=== PATIENT | female | born 1995 | race Caucasian/White ===

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

== ENCOUNTER 2017-07-04 13:50 | Emergency (ER) | payer MEDICAID ==
[~2017-07-04] VITALS: Ht 160 cm; Wt 72.6 kg
[~2017-07-04 13:50] MED LIST changes: +CLIN300C11 PO; +IBUP-1780 PO; +METR500T PO; +NAPR500T PO
--- OUTSIDE RECORDS SUMMARY | 2017-07-04 13:55 | XMS REPORT | Clinical Summary ---
Demographics Preferred Language Unknown Marital Status Unknown Shinto Affiliation Unknown Race Unknown Ethnic Group Unknown Author Author [facility] Address Unknown Phone Unavailable Support Name Relationship Address Phone , Contact,No ECON Unknown Allergies Not on File Current Medications Not on file Active Problems Not on file Social History Tobacco Use Types Packs/Day Years Used Date Never Assessed Sex Assigned at Date Recorded Not on file Plan of Treatment Health Maintenance Due Date Last Done Comments HPV Vaccines (1 of 3 - 2008 Female 3 Dose Series) Varicella Vaccines (1 of 2010 2 - 2 Dose Adolescent Series) MenB Vaccine (Bexsero) (1 2013 of 2) DTaP,Tdap,and Td Vaccines 2016 (1 - Tdap) Influenza Vaccine (#1) 2017 Results Not on filefrom Last 3 Months
--- OUTSIDE RECORDS SUMMARY | 2017-07-04 13:55 | XMS REPORT ---
Author Author Indy Herrmann [facility] eClinicalWorks Address Unknown Phone Unavailable Care Team Providers Care Denture Contour Wire Specialist Name Role Phone Indy Herrmann Unavailable Allergies No Known Allergies Problems Problem Type Condition ICD-9 Code Onset Dates Condition Status Assessment Unspecified viral infection, in conditions classified elsewhere and of unspecified site 079.99 Active Assessment Other constipation 564.09 Active Problem Allergic rhinitis 477.9 Active Medications Medication Code System Code Instructions Start Date End Date Status Dosage Dulcolax [facility] [address] 5 MG Orally x1, repeat in 6 hrs if no results May 23, 2014 Jun 22, 2014 Active 1 tablet as needed Ankle Lace-Up Brace [facility] 5349 1 to left ankle when doing activities Apr Active as directed Colace [facility] [address]-94 100 MG Orally BID May 23, 2014 Jul 21, 2014 Active 1 capsule as needed Procedures Procedure Coding System Code Date OFFICE VISIT, EST-LOW COMPLEXITY (15 MIN.) CPT-4 77463 Jun 20, 2014 Results No Known Results Summary Purpose eClinicalWorks Submission
[2017-07-04 13:56] VITALS: BP 114/80
--- OUTSIDE RECORDS SUMMARY | 2017-07-04 13:56 | XMS REPORT ---
Author Author Indy Herrmann [facility] eClinicalWorks Address Unknown Phone Unavailable Care Team Providers Care Top Closer Name Role Phone Indy Herrmann Unavailable Allergies No Known Allergies Problems Problem Type Condition ICD-9 Code Onset Dates Condition Status Assessment Other acne 706.1 Active Problem Allergic rhinitis 477.9 Active Medications Medication Code System Code Instructions Start Date End Date Status Dosage Colace [facility] [address]-36 100 MG Orally Once a day for 7 days then prn May 23, 2014 Jun 22, 2014 Active 1 capsule as needed Dulcolax [facility] [address] 5 MG Orally x1, repeat in 6 hrs if no results May 23, 2014 Jun 22, 2014 Active 1 tablet as needed Ankle Lace-Up Brace [facility] 5349 1 to left ankle when doing activities Apr Active as directed Procedures Procedure Coding System Code Date OFFICE VISIT, EST-LOW COMPLEXITY (10 MIN.) CPT-4 02795 Jun 06, 2014 Results No Known Results Summary Purpose eClinicalWorks Submission
--- OUTSIDE RECORDS SUMMARY | 2017-07-04 13:56 | XMS REPORT ---
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
--- OUTSIDE RECORDS SUMMARY | 2017-07-04 13:56 | XMS REPORT ---
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
[2017-07-04] MEDS ORDERED: CHLO473M4 MM (14:05)
[2017-07-04] MEDS ORDERED: LIDOCAINE VISCOUS BC (14:05)
[2017-07-04] MEDS ORDERED: NAPR500T PO (14:05)
--- NOTE | 2017-07-04 14:05 | ED EENT ---
History of Present Illness General Stated Complaint: DENTAL PAIN/PRESSURE Source: patient Exam Limitations: no limitations History of Present Illness Time seen by provider: 14:00 Initial Comments To ER with dental pain ongoing. This affects all of her teeth she states as a pressure sensation. She was here June 11 for this and given clindamycin and naproxen but she denies improvement. She has an appointment August [address] Melgar the dentist. Location: dental Associated Symptoms: denies symptoms Allergies and Home Medications Allergies Coded Allergies: Penicillins (Unverified Allergy, Mild, 10/30/08) Home Medications Clindamycin HCl 300 Mg Capsule, 300 MG PO TID, #21 Prescribed by: LORE GARCIA on 06/11/17 1528 Docusate Sodium 100 Mg Capsule, 100 MG PO BID PRN for CONSTIPATION, #40 Prescribed by: DARREL HOROWITZ on 05/29/16 0943 Erythromycin Base 1 Gm Oint...g., 0 OP Q4H, #1 1/2 inch Prescribed by: PEDRO ALONZO on 08/18/16 1008 Ferrous Sulfate 325 Mg Tablet, 325 MG PO DAILY@0700, #30 Prescribed by: DARREL HOROWITZ on 05/29/16 0943 Ibuprofen 600 Mg Tablet, 600 MG PO Q6H PRN for PAIN, #80 Prescribed by: DARREL HOROWITZ on 05/29/16 0943 Ibuprofen 800 Mg Tablet, 800 MG PO Q8H PRN for PAIN, #30 Prescribed by: LORE GARCIA on 10/17/16 1231 Metronidazole 500 Mg Tablet, 500 MG PO BID, #14 Prescribed by: LORE GARCIA on 10/17/16 1231 Naproxen 500 Mg Tablet, 500 MG PO BID PRN for PAIN-MODERATE, #30 Prescribed by: LORE GARCIA on 06/11/17 1528 Olopatadine 5 Ml Drops, 1 DROP OU BID PRN for ITCHING, #1 May substitute Pataday one drop each eye daily if more cost effective Prescribed by: PEDRO ALONZO on 08/18/16 1008 Pnv with Ca,No.72/Iron/FA 1 Each Tablet, 1 EA PO DAILY@0700, #30 Prescribed by: DARREL HOROWITZ on 05/29/16 0943 Sulfamethoxazole/Trimethoprim 1 Each Tablet, 1 EACH PO BID, #10 Prescribed by: LORE GARCIA on 07/15/16 1801 Sulfamethoxazole/Trimethoprim 1 Each Tablet, 1 EACH PO BID, #10 Prescribed by: LORE GARCIA on 10/17/16 1231 Review of Systems Constitutional: see HPI Eyes: No Symptoms Reported Ears: No Symptoms Reported Nose: no symptoms reported Mouth: see HPI, pain Throat: no symptoms reported Respiratory: no symptoms reported Cardiovascular: no symptoms reported Past Molaebd-Pyiejs-Tnsevk Hx Patient Social History Type Used: Cigarettes 2nd Hand Smoke Exposure: Yes Recent Foreign Travel: No Contact w/Someone Who Travel: No Recent Hopitalizations: No Immunizations Up To Date Tetanus Booster (TDap): Unknown PED Vaccines UTD: Yes Date of Influenza Vaccine: Jun 24, 2016 Seasonal Allergies Seasonal Allergies: Yes Surgeries History of Surgeries: Yes (TUBES IN EARS) Respiratory History of Respiratory Disorde: Yes Respiratory Disorders: Asthma, Pneumonia Cardiovascular History of Cardiac Disorders: No Neurological History of Neurological Disord: No Reproductive System Hx Reproductive Disorders: No Sexually Transmitted Disease: No HIV/AIDS: No Female Reproductive Disorders: Denies Gastrointestinal History of Gastrointestinal Di: No Musculoskeletal History of Musculoskeletal Dis: No Endocrine History of Endocrine Disorders: No Cancer History of Cancer: No Psychosocial History of Psychiatric Problem: No Integumentary History of Skin or Integumenta: No Blood Transfusions History of Blood Disorders: No Adverse Reaction to a Blood Tr: No Family Medical History Family Medial History: Patient reports no known family medical history. Physical Exam General Appearance: WD/WN, no apparent distress Eyes: bilateral eye normal inspection, bilateral eye PERRL, bilateral eye EOMI Ears: bilateral ear auricle normal, bilateral ear canal normal, bilateral ear TM normal Mouth/Throat: normal mouth inspection, pharynx normal, other (gingivitis noted but there is no fluctuant dental abscess.) Gastrointestinal: non tender, soft Neurologic/Psychiatric: alert, normal mood/affect, oriented x 3 Skin: normal color, warm/dry Departure Impression Impression: Primary Impression: Pain, dental Additional Impression: Gingivitis Disposition: 01 HOME, SELF-CARE Condition: Stable Departure-Patient Inst. Decision time for Depature: 14:02 [facility]errals: [facility] (PCP/Family) Primary Care Physician Patient Instructions: Dental Pain, Gingivitis (DC) Add. Discharge Instructions: 1. Follow-up with your dentist 2. Scripts [Lidocaine Viscous] No Conflict Check 1 ML BC TID Y for PAIN-MODERATE TO SEVERE, #1 EACH Prov: LORE GARCIA APRN 07/04/17 Chlorhexidine Gluconate (Peridex) 473 Ml Mouthwash 30 ML MM BID, #473 ML Prov: LORE GARCIA APRN 07/04/17 Naproxen (Naprosyn) 500 Mg Tablet 500 MG PO BID, #30 TAB Prov: LORE GARCIA APRN 07/04/17 LORE GARCIA APRN Jul 04, 2017 14:05
== END 2017-07-04 14:10 | disposition home or self-care (01) ==
LOC: EDUNIT# 13:50 → ER 13:51
DX: K05.10 Chronic gingivitis, plaque induced (principal); J45.909 Unspecified asthma, uncomplicated; Z87.01 Personal history of pneumonia (recurrent); Z77.22 Contact with and (suspected) exposure to environmental tobacco smoke (acute) (chronic)
CPT/HCPCS: 99282

== ENCOUNTER 2017-07-13 18:28 | Emergency (ER) | payer MEDICAID ==
[~2017-07-13] VITALS: Ht 160 cm; Wt 72.6 kg
[~2017-07-13 18:28] MED LIST changes: +CHLO473M4 MM; +LIDOCAINE VISCOUS BC; +NAPR-1071 PO; -NAPR500T PO
[2017-07-13] MEDS ORDERED: LACTATED RINGERS 1,000 ML IV ONE (18:44)
[2017-07-13] MEDS ORDERED: ONDANSETRON 4 MG/2 ML (SDV) Z0FRAN IVP ONE (18:45)
--- NOTE | 2017-07-13 18:49 | ED GI ---
General Chief Complaint: Abdominal/GI Problems Stated Complaint: VOMITING Source of Information: Patient History of Present Illness Time Seen By Provider: 18:39 Initial Comments C/O NAUSEA/VOMITING/DIARRHEA SINCE 0300 THIS AM HAS VOMITED X 7-8, AND HAD DIARRHEA X 7-8 C/O RIGHT MID / LOWER ABDOMINAL PAIN HAS HAD SOME BURNING ON URINATION AND URINARY FREQUENCY NO FEVER CHILD AND AND PT'S FATHER BOTH ILL WITH SAME--ALL LIVE IN SAME HOME NO SUSPICIOUS FOODS LMP 06/18/17. NORMAL. NO CONTROL PCP: [facility] Allergies and Home Medications Allergies Coded Allergies: Penicillins (Unverified Allergy, Mild, 10/30/08) Home Medications Chlorhexidine Gluconate 473 Ml Mouthwash, 30 ML MM BID, #473 Prescribed by: LORE GARCIA on 07/04/17 1405 Clindamycin HCl 300 Mg Capsule, 300 MG PO TID, #21 Prescribed by: LORE GARCIA on 06/11/17 1528 Review of Systems Constitutional: no symptoms reported EENTM: No Symptoms Reported Respiratory: No Symptoms Reported Cardiovascular: No Symptoms Reported Gastrointestinal: See HPI, Abdominal Pain, Diarrhea, Nausea, Poor Appetite, Poor Fluid Intake, Vomiting Genitourinary: See HPI, Burning, Frequency Musculoskeletal: no symptoms reported Skin: no symptoms reported Psychiatric/Neurological: No Symptoms Reported Endocrine: No Symptoms Reported Hematologic/Lymphatic: No Symptoms Reported Past Bhoiavh-Vajqmh-Jtlruj Hx Patient Social History Alcohol Use: Denies Use Recreational Drug Use: No Smoking Status: Current Everyday Smoker (1/2 PPD) Type Used: Cigarettes 2nd Hand Smoke Exposure: Yes Recent Hopitalizations: No Immunizations Up To Date Tetanus Booster (TDap): Unknown PED Vaccines UTD: Yes Date of Influenza Vaccine: Jun 24, 2016 Seasonal Allergies Seasonal Allergies: Yes Surgeries History of Surgeries: Yes (BMT'S ) Surgeries: Ear Surgery Respiratory History of Respiratory Disorde: Yes Respiratory Disorders: Asthma, Pneumonia Cardiovascular History of Cardiac Disorders: No Neurological History of Neurological Disord: No Reproductive System : No Hx Reproductive Disorders: No Sexually Transmitted Disease: No HIV/AIDS: No Female Reproductive Disorders: Denies Genitourinary History of Genitourinary Disor: No Gastrointestinal History of Gastrointestinal Di: No Musculoskeletal History of Musculoskeletal Dis: No Endocrine History of Endocrine Disorders: No HEENT History of HEENT Disorders: Yes (BMT'S INFANT) HEENT Disorders: Chronic Ear Infection Cancer History of Cancer: No Psychosocial History of Psychiatric Problem: No Integumentary History of Skin or Integumenta: No Blood Transfusions History of Blood Disorders: No Adverse Reaction to a Blood Tr: No Family Medical History Family Medial History: Patient reports no known family medical history. Physical Exam Vital Signs VS - Last 72 Hours, by Label 07/13/17 18:39 Temp 98.9 Pulse 86 Resp 18 B/P (MAP) 116/78 Pulse Ox 99 Capillary Refill : General Appearance: WD/WN, no apparent distress, other (DOES NOT APPEAR ILL. SMILING, TALKATIVE, WALKS UPRIGHT AND QUICKLY WITHOUT DIFFICULTY) HEENT: PERRL/EOMI, normal ENT inspection, other (ORAL MUCOSA MOIST) Neck: normal inspection Respiratory: normal breath sounds, no respiratory distress, no accessory muscle use Cardiovascular: regular rate, rhythm, no edema, no JVD, no murmur Gastrointestinal: normal bowel sounds, soft, no organomegaly, No distended, No guarding, No rebound, tenderness (MILD RIGHT MID AND LOWER ABDOMINAL TENDERNESS) , No hernia, No mass Extremities: normal range of motion, non-tender, normal inspection, no pedal edema, no calf tenderness, normal capillary refill Back: normal inspection, no CVA tenderness Neurologic/Psychiatric: 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 nml as tested, no motor/sensory deficits, alert, normal mood/affect, oriented x 3 Skin: normal color, warm/dry, No rash Progress/Results/Core Measures Results/Orders Lab Results Laboratory Tests Test 07/13/17 18:50 07/13/17 19:19 Range/Units White Blood Count 5.9 4.3-11.0 10^3/uL Red Blood Count 4.63 4.35-5.85 10^6/uL Hemoglobin 13.5 11.5-16.0 G/DL Hematocrit 40 35-52 % Mean Corpuscular Volume 86 80-99 FL Mean Corpuscular Hemoglobin 29 25-34 PG Mean Corpuscular Hemoglobin Concent 34 32-36 G/DL Red Cell Distribution Width 13.6 10.0-14.5 % Platelet Count 255 130-400 10^3/uL Mean Platelet Volume 9.2 7.4-10.4 FL Neutrophils (%) (Auto) 75 42-75 % Lymphocytes (%) (Auto) 13 12-44 % Monocytes (%) (Auto) 10 0-12 % Eosinophils (%) (Auto) 1 0-10 % Basophils (%) (Auto) 0 0-10 % Neutrophils # (Auto) 4.5 1.8-7.8 X 10^3 Lymphocytes # (Auto) 0.8 L 1.0-4.0 X 10^3 Monocytes # (Auto) 0.6 0.0-1.0 X 10^3 Eosinophils # (Auto) 0.1 0.0-0.3 10^3/uL Basophils # (Auto) 0.0 0.0-0.1 10^3/uL Sodium Level 140 135-145 MMOL/L Potassium Level 3.8 3.6-5.0 MMOL/L Chloride Level 105 98-107 MMOL/L Carbon Dioxide Level 23 21-32 MMOL/L Anion Gap 12 5-14 MMOL/L Blood Urea Nitrogen 7 7-18 MG/DL Creatinine 0.63 0.60-1.30 MG/DL Estimat Glomerular Filtration Rate > 60 BUN/Creatinine Ratio 11 Glucose Level 90 70-105 MG/DL Calcium Level 9.1 8.5-10.1 MG/DL Total Bilirubin 0.3 0.1-1.0 MG/DL Aspartate Amino Transf (AST/SGOT) 12 5-34 U/L Alanine Aminotransferase (ALT/SGPT) 16 0-55 U/L Alkaline Phosphatase 54 40-136 U/L Total Protein 6.6 6.4-8.2 GM/DL Albumin 4.0 3.2-4.5 GM/DL Amylase Level 30 25-125 U/L Lipase 9 8-78 U/L Serum Test, Qualitative NEGATIVE NEGATIVE Urine Color YELLOW Urine Clarity CLEAR Urine pH 7 5-9 Urine Specific [place] 1.005 L 1.016-1.022 Urine Protein NEGATIVE NEGATIVE Urine Glucose (UA) NEGATIVE NEGATIVE Urine Ketones NEGATIVE NEGATIVE Urine Nitrite NEGATIVE NEGATIVE Urine Bilirubin NEGATIVE NEGATIVE Urine Urobilinogen NORMAL NORMAL MG/DL Urine Leukocyte Esterase 1+ H NEGATIVE Urine RBC (Auto) NEGATIVE NEGATIVE Urine RBC NONE /HPF Urine WBC 0-2 /HPF Urine Squamous Epithelial Cells 0-2 /HPF Urine Crystals NONE /LPF Urine Bacteria NONE /HPF Urine Casts NONE /LPF Urine Mucus NEGATIVE /LPF Urine Culture Indicated NO My Orders Orders - SHANON BELLO DO Saline Lock/Iv-Start (07/13/17 18:44) Amylase (07/13/17 18:44) Cbc With Automated Diff (07/13/17 18:44) Comprehensive Metabolic Panel (07/13/17 18:44) Hcg,Qualitative Serum (07/13/17 18:44) Lipase (07/13/17 18:44) Ua Culture If Indicated (07/13/17 18:44) Ondansetron Injection (Zofran Injectio (07/13/17 18:45) Saline Lock/Iv-Start (07/13/17 18:44) Lactated Ringers (Lr 1000 Ml Iv Solution (07/13/17 18:44) Medications Given in ED Current Medications Medications Dose Ordered Sig/Charity Route Start Time Stop Time Status Last Admin Dose Admin Lactated Ringer's 1,000 ml @ 0 mls/hr Q0M ONCE IV 07/13/17 18:44 07/13/17 18:45 DC 07/13/17 18:52 1,000 MLS/HR Ondansetron HCl 4 mg ONCE ONCE IVP 07/13/17 18:45 07/13/17 18:46 DC 07/13/17 18:52 4 MG Vital Signs/I&O Vital Sign - Last 12Hours 07/13/17 18:39 Temp 98.9 Pulse 86 Resp 18 B/P (MAP) 116/78 Pulse Ox 99 Progress Note : Progress Note NO VOMITING OR DIARRHEA DURING ER STAY ABLE TO VOID X 2 DURING ER STAY NAUSEA RESOLVED WITH MEDICATIONS AND STATES SHE FEELS MUCH BETTER Departure Impression Impression: Primary Impression: Gastroenteritis Disposition: 01 HOME, SELF-CARE Condition: Improved Departure-Patient Inst. Referrals: [facility] (PCP/Family) Primary Care Physician Patient Instructions: [id number], Viral Gastroenteritis, Adult ( DC) Add. Discharge Instructions: CLEAR LIQUIDS--WATER, BROTH, JELLO, GATORADE TOMORROW IF YOU ARE BETTER, ADD BRATS DIET TO CLEAR LIQUIDS--BANANAS, RICE, APPLESAUCE, TOAST, SALTINES [facility]-2 DAYS IF NO BETTER All discharge instructions reviewed with patient and/or family. Voiced understanding. Scripts Ondansetron (Zofran Odt) 4 Mg Tab.rapdis 4 MG PO Q4H for Nausea/Vomiting, #10 TAB Prov: SHANON BELLO DO 07/13/17 SHANON BELLO DO Jul 13, 2017 18:49
[2017-07-13 19:11] LABS: BASOPHILS % (AUTO) 0 % (0-10); EOSINOPHILS # (AUTO) 0.1 10^3/uL (0.0-0.3); EOSINOPHILS % (AUTO) 1 % (0-10); LYMPHOCYTES # (AUTO) 0.8 X 10^3 (1.0-4.0); LYMPHOCYTES % (AUTO) 13 % (12-44); MEAN CORPUSCULAR HEMOGLOBIN 29 PG (25-34); MEAN CORPUSCULAR HGB CONC 34 G/DL (32-36); MEAN CORPUSCULAR VOLUME 86 FL (80-99); MEAN PLATELET VOLUME 9.2 FL (7.4-10.4); MONOCYTES # (AUTO) 0.6 X 10^3 (0.0-1.0); MONOCYTES % (AUTO) 10 % (0-12); NEUTROPHILS # (AUTO) 4.5 X 10^3 (1.8-7.8); NEUTROPHILS % (AUTO) 75 % (42-75); PLATELET COUNT 255 10^3/uL (130-400); RED BLOOD COUNT 4.63 10^6/uL (4.35-5.85); RED CELL DISTRIBUTION WIDTH 13.6 % (10.0-14.5); WHITE BLOOD COUNT 5.9 10^3/uL (4.3-11.0)
[2017-07-13 19:27] LABS: BILIRUBIN,URINE NEGATIVE (NEGATIVE); KETONES,URINE NEGATIVE (NEGATIVE); LEUKOCYTE ESTERASE ,URINE 1+ (NEGATIVE); NITRITE,URINE NEGATIVE (NEGATIVE); PH,URINE 7 (5-9); PROTEIN,URINE NEGATIVE (NEGATIVE); UROBILINOGEN,URINE NORMAL (NORMAL)
[2017-07-13 19:29] LABS: ALANINE AMINOTRANSFERASE 16 U/L (0-55); AMYLASE 30 U/L (25-125); ANION GAP 12 MMOL/L (5-14); ASPARTATE AMINO TRANSFERASE 12 U/L (5-34); BILIRUBIN,TOTAL 0.3 MG/DL (0.1-1.0); BLOOD UREA NITROGEN 7 MG/DL (7-18); BUN/CREATININE RATIO 11; CALCIUM 9.1 MG/DL (8.5-10.1); CARBON DIOXIDE 23 MMOL/L (21-32); CHLORIDE 105 MMOL/L (98-107); CREATININE SERUM 0.63 MG/DL (0.60-1.30); GFR ESTIMATED > 60; GLUCOSE 90 MG/DL (70-105); LIPASE 9 U/L (8-78); POTASSIUM 3.8 MMOL/L (3.6-5.0); SODIUM 140 MMOL/L (135-145); TOTAL PROTEIN 6.6 GM/DL (6.4-8.2)
[2017-07-13 19:47] LABS: SQUAMOUS EPITHELIAL CELL,UR 0-2 /HPF; WBC,URINE 0-2 /HPF
[2017-07-13] MEDS ORDERED: ONDA4TAB8 PO (20:03)
[2017-07-13] MEDS ORDERED: RX-ONDANSETRON 4 MG ODT (ZOFRAN) PPK #4 ONE (20:11)
== END 2017-07-13 20:15 | disposition home or self-care (01) ==
LOC: EDUNIT# 18:28 → ER 18:29
DX: K52.9 Noninfective gastroenteritis and colitis, unspecified (principal); J45.909 Unspecified asthma, uncomplicated; F17.210 Nicotine dependence, cigarettes, uncomplicated; Z87.01 Personal history of pneumonia (recurrent)
CPT/HCPCS: 36415; 80053; 81000; 82150; 83690; 84703; 85025

== ENCOUNTER 2017-10-05 10:47 | Emergency (ER) | payer MEDICAID ==
[~2017-10-05] VITALS: Ht 160 cm; Wt 72.6 kg
[~2017-10-05 10:47] MED LIST changes: -FERR-74 PO; +FERR325T18 PO; +ONDA4TAB8 PO
--- OUTSIDE RECORDS SUMMARY | 2017-10-05 10:52 | XMS REPORT | Clinical Summary ---
Demographics Preferred Language Unknown Marital Status Unknown Pentecostal Affiliation Unknown Race Unknown Ethnic Group Unknown Author Author [facility] Address Unknown Phone Unavailable Care Team Providers Care Operator Ground Based [employer] Name Role Phone PP Unavailable Allergies Not on File Current Medications Not [...]
--- OUTSIDE RECORDS SUMMARY | 2017-10-05 10:55 | XMS REPORT | Continuity of Care Document ---
Author Author [facility] Organization [facility] Address Unknown Phone Unavailable Allergies Active Description Code Type Severity Reaction Onset Reported/Identified Relationship to Patient Clinical Status Yes Penicillins Drug Allergy N/A N/A 10/29/2008 Yes Penicillins [id number] Drug Allergy Mild N/A 10/30/2008 Medications There is no data. Problems Date Dx Coded Attending Type Code Diagnosis Diagnosed By 10/29/2008 HEMAL BUCHANAN MD 466.19 Bronchiolitis 10/29/2008 HEMAL BUCHANAN MD 733.6 Costochondritis (tietze's Syndrome) 10/29/2008 GARRETT FRANK APRN 466.19 Bronchiolitis 10/29/2008 GARRETT FRANK APRN 733.6 Costochondritis (tietze's Syndrome) 10/29/2008 SIRIA GARCIA APRN 466.19 Bronchiolitis 10/29/2008 SIRIA GARCIA APRN 733.6 Costochondritis (tietze's Syndrome) 10/29/2008 YAN SAAVEDRA MD 466.19 Bronchiolitis 10/29/2008 YAN SAAVEDRA MD 733.6 Costochondritis (tietze's Syndrome) 10/29/2008 RICARDA GODDARD DO 466.19 Bronchiolitis 10/29/2008 RICARDA GODDARD DO 733.6 Costochondritis (tietze's Syndrome) 10/29/2008 LORETTA SINCLAIR APRN 466.19 Bronchiolitis 10/29/2008 LORETTA SINCLAIR APRN 733.6 Costochondritis (tietze's Syndrome) 01/16/2009 HEMAL BUCHANAN MD V06.1 Dtp/dtap, Ijlhhxrqsy-jbycugy-cqgbgwaxo Combined 01/16/2009 GARRETT FRANK APRN V06.1 Dtp/dtap, Sxndlcvxfm-rklmbax-nxxxgidlm Combined 01/16/2009 SIRIA GARCIA APRN V06.1 Dtp/dtap, Fmmmjgtiow-jnxrjcc-bqmesxkqw Combined 01/16/2009 YAN SAAVEDRA MD V06.1 Dtp/dtap, Weoktdkwij-coabeop-luegiytch Combined 01/16/2009 RICARDA GODDARD DO K V06.1 Dtp/dtap, Idlzswkwhd-rkrcgvn-uaabgupdz Combined 01/16/2009 LORETTA SINCLAIR APRN L V06.1 Dtp/dtap, Kjwhxptozh-cvyxjir-kofkcpsbv Combined 01/28/2009 HEMAL BUCHANAN MD 078.10 Viral Warts Unspecified 01/28/2009 GARRETT FRANK APRN R 078.10 Viral Warts Unspecified 01/28/2009 SIRIA GARCIA APRN 078.10 Viral Warts Unspecified 01/28/2009 YAN SAAVEDRA MD N 078.10 Viral Warts Unspecified 01/28/2009 RICARDA GODDARD DO 078.10 Viral Warts Unspecified 01/28/2009 LORETTA SINCLAIR APRN 078.10 Viral Warts Unspecified 03/30/2009 HEMAL BUCHANAN MD 462 Sore Throat 03/30/2009 HEMAL BUCHANAN MD 786.2 Cough 03/30/2009 GARRETT FRANK APRN R 462 Sore Throat 03/30/2009 GARRETT FRANK APRN R 786.2 Cough 03/30/2009 SIRIA GARCIA APRN 462 Sore Throat 03/30/2009 SIRIA GARCIA APRN 786.2 Cough 03/30/2009 YNA SAAVEDRA MD 462 Sore Throat 03/30/2009 YAN SAAVEDRA MD 786.2 Cough 03/30/2009 RICARDA GODDARD DO K 462 Sore Throat 03/30/2009 RICARDA GODDARD DO K 786.2 Cough 03/30/2009 LORETTA SINCLAIR APRN L 462 Sore Throat 03/30/2009 LORETTA SINCLAIR APRN L 786.2 Cough 06/21/2009 HEMAL BUCHANAN MD 558.9 Gastroenteritis Noninfectious 06/21/2009 GARRETT FRANK APRN R 558.9 Gastroenteritis Noninfectious 06/21/2009 SIRIA GARCIA APRN 558.9 Gastroenteritis Noninfectious 06/21/2009 YAN SAAVEDRA MD 558.9 Gastroenteritis Noninfectious 06/21/2009 RICARDA GODDARD DO K 558.9 Gastroenteritis Noninfectious 06/21/2009 LORETTA SINCLAIR APRN L 558.9 Gastroenteritis Noninfectious 06/22/2009 HEMAL BUCHANAN MD 787.3 Flatulence, Eructation, And Gas Pain 06/22/2009 GARRETT FRANK APRN R 787.3 Flatulence, Eructation, And Gas Pain 06/22/2009 SIRIA GARCIA APRN 787.3 Flatulence, Eructation, And Gas Pain 06/22/2009 YAN SAAVEDRA MD 787.3 Flatulence, Eructation, And Gas Pain 06/22/2009 RICARDA GODDARD DO K 787.3 Flatulence, Eructation, And Gas Pain 06/22/2009 LORETTA SINCLAIR APRN 787.3 Flatulence, Eructation, And Gas Pain 06/26/2009 HEMAL BUCHANAN MD 388.7 OTALGIA 06/26/2009 GARRETT FRANK APRN R 388.7 OTALGIA 06/26/2009 SIRIA GARCIA APRN 388.7 OTALGIA 06/26/2009 YAN SAAVEDRA MD 388.7 OTALGIA 06/26/2009 RICARDA GODDARD DO K 388.7 OTALGIA 06/26/2009 LORETTA SINCLAIR APRN L 388.7 OTALGIA 06/28/2009 IBAN BUCHANAN MDISTA 477.9 ALLERGIC RHINITIS 06/28/2009 HEMAL BUCHANAN MD 493.90 ASTHMA 06/28/2009 GARRETT FRANK APRN R 477.9 ALLERGIC RHINITIS 06/28/2009 GARRETT FRANK APRN R 493.90 ASTHMA 06/28/2009 SIRIA GARCIA APRN 477.9 ALLERGIC RHINITIS 06/28/2009 SIRIA GARCIA APRN 493.90 ASTHMA 06/28/2009 YAN SAAVEDRA MD 477.9 ALLERGIC RHINITIS 06/28/2009 YAN SAAVEDRA MD 493.90 ASTHMA 06/28/2009 GODDARD KATE JAINA K 477.9 ALLERGIC RHINITIS 06/28/2009 GODDARD KATE JAINA K 493.90 ASTHMA 06/28/2009 HERMANN SINCLAIR APRNA L 477.9 ALLERGIC RHINITIS 06/28/2009 HERMANN SINCLAIR APRNA L 493.90 ASTHMA 07/22/2009 HEMAL BUCHANAN MD 787.01 Nausea With Vomiting 07/22/2009 HEMAL BUCHANAN MD 787.91 Diarrhea 07/22/2009 GARRETT FRANK APRN R 787.01 Nausea With Vomiting 07/22/2009 GARRETT FRANK APRN R 787.91 Diarrhea 07/22/2009 SIRIA GACRIA APRN 787.01 Nausea With Vomiting 07/22/2009 SIRIA GARCIA APRN 787.91 Diarrhea 07/22/2009 YAN SAAVEDRA MD 787.01 Nausea With Vomiting 07/22/2009 YAN SAAVEDRA MD 787.91 Diarrhea 07/22/2009 NITZA JAIN RICARDA K 787.01 Nausea With Vomiting 07/22/2009 NITZA JAIN RICARDA K 787.91 Diarrhea 07/22/2009 HERMANN SINCLAIR APRNA L 787.01 Nausea With Vomiting 07/22/2009 HERMANN SINCLAIR APRNA L 787.91 Diarrhea 10/07/2009 HEMAL BUCHANAN MD 465.9 Upper Respiratory Infection 10/07/2009 GARRETT FRANK APRN R 465.9 Upper Respiratory Infection 10/07/2009 SIRIA GARCIA APRN T 465.9 Upper Respiratory Infection 10/07/2009 YAN SAAVEDRA MD N 465.9 Upper Respiratory Infection 10/07/2009 KATE GODDARD DOA K 465.9 Upper Respiratory Infection 10/07/2009 LORETTA SINCLAIR APRN L 465.9 Upper Respiratory Infection 10/29/2009 EHMAL BUCHANAN MD 079.99 Viral Syndrome 10/29/2009 GARRETT FRANK APRN R 079.99 Viral Syndrome 10/29/2009 SIRIA GARCIA APRN 079.99 Viral Syndrome 10/29/2009 YAN SAAVEDRA MD N 079.99 Viral Syndrome 10/29/2009 KATE GODDARD DOA K 079.99 Viral Syndrome 10/29/2009 LORETTA SINCLAIR APRN L 079.99 Viral Syndrome 11/20/2009 CHANEL MD, HEMAL 782.1 Rash 11/20/2009 CHANEL BLACKMON, HEMAL 919.4 Insect Bite Nonvenomous Of Other Multiple And Unspecified Sites Without Infection 11/20/2009 ZAC BATRES, GARRETT R 782.1 Rash 11/20/2009 ZAC BATRES, GARRETT R 919.4 Insect Bite Nonvenomous Of Other Multiple And Unspecified Sites Without Infection 11/20/2009 SIRIA GARCIA APRN T 782.1 Rash 11/20/2009 SIRIA GARCIA APRN 919.4 Insect Bite Nonvenomous Of Other Multiple And Unspecified Sites Without Infection 11/20/2009 QUENTIN BLACKMON, YAN N 782.1 Rash 11/20/2009 YAN SAAVEDRA MD N 919.4 Insect Bite Nonvenomous Of Other Multiple And Unspecified Sites Without Infection 11/20/2009 GODDARD DO, RICARDA K 782.1 Rash 11/20/2009 GODDARD DO, RICARDA K 919.4 Insect Bite Nonvenomous Of Other Multiple And Unspecified Sites Without Infection 11/20/2009 MADL FEEDER SWITCHBOARD OPERATOR, LORETTA L 782.1 Rash 11/20/2009 MADL FEEDER SWITCHBOARD OPERATOR, LORETTA L 919.4 Insect Bite Nonvenomous Of Other Multiple And Unspecified Sites Without Infection 04/17/2010 CHANEL BLACKMON, HEMAL 278.02 OVERWEIGHT 04/17/2010 CHANEL BLACKMON, HEMAL V01.84 Meningococcal Vaccine 04/17/2010 CHANEL BLACKMON, HEMAL V04.81 Flu Shot 04/17/2010 CHANEL BLACKMON, HEMAL V05.3 Hepatitis A Vaccine 04/17/2010 CHANEL BLACKMON, HEMAL V05.4 Varicella, Chickenpox 04/17/2010 CHANEL BLACKMON, HEMAL V05.8 Gardasil 04/17/2010 CHANEL BLACKMON, HEAML V20.2 Well Child 04/17/2010 GARRETT FRANK APRN R 278.02 OVERWEIGHT 04/17/2010 GENET FRANK APRNIA R V01.84 Meningococcal Vaccine 04/17/2010 GARRETT FRANK APRN R V04.81 Flu Shot 04/17/2010 GARRETT FRANK APRN R V05.3 Hepatitis A Vaccine 04/17/2010 FRANK FEEDER SWITCHBOARD OPERATOR, GARRETT R V05.4 Varicella, Chickenpox 04/17/2010 ZAC FEEDER SWITCHBOARD OPERATOR, GARRETT R V05.8 Gardasil 04/17/2010 GENET FRANK APRNIA R V20.2 Well Child 04/17/2010 SIRIA GARCIA APRN 278.02 OVERWEIGHT 04/17/2010 SIRIA GARCIA APRN V01.84 Meningococcal Vaccine 04/17/2010 SIRIA GARCIA APRN V04.81 Flu Shot 04/17/2010 SIRIA GARCIA APRN V05.3 Hepatitis A Vaccine 04/17/2010 SIRIA GARCIA APRN T V05.4 Varicella, Chickenpox 04/17/2010 SIRIA GARCIA APRN V05.8 Gardasil 04/17/2010 SIRIA GARCIA APRN V20.2 Well Child 04/17/2010 QUENTIN BLACKMON, YAN Victor 278.02 OVERWEIGHT 04/17/2010 QUENTIN BLACKMON, YAN Victor V01.84 Meningococcal Vaccine 04/17/2010 YAN SAAVEDRA MD N V04.81 Flu Shot 04/17/2010 YAN SAAVEDRA MD N V05.3 Hepatitis A Vaccine 04/17/2010 YAN SAAVEDRA MD N V05.4 Varicella, Chickenpox 04/17/2010 YAN SAAVEDRA MD N V05.8 Gardasil 04/17/2010 YAN SAAVEDRA MD V20.2 Well Child 04/17/2010 RICARDA GODDARD DO 278.02 OVERWEIGHT 04/17/2010 RICARDA GODDARD DO V01.84 Meningococcal Vaccine 04/17/2010 RICARDA GODDARD DO V04.81 Flu Shot 04/17/2010 RICARDA GODDARD DO V05.3 Hepatitis A Vaccine 04/17/2010 RICARDA GODDARD DO K V05.4 Varicella, Chickenpox 04/17/2010 RICARDA GODDARD DO K V05.8 Gardasil 04/17/2010 RICARDA GODDARD DO V20.2 Well Child 04/17/2010 YAHIR FEEDER SWITCHBOARD OPERATORKAILYNLORETTA L 278.02 OVERWEIGHT 04/17/2010 MADReji FEEDER SWITCHBOARD OPERATOR, LORETTA L V01.84 Meningococcal Vaccine 04/17/2010 MADReji FEEDER SWITCHBOARD OPERATOR, LORETTA L V04.81 Flu Shot 04/17/2010 YAHIR FEEDER SWITCHBOARD OPERATORKEVIN VictorNYA L V05.3 Hepatitis A Vaccine 04/17/2010 MADL FEEDER SWITCHBOARD OPERATOR, LORETTA L V05.4 Varicella, Chickenpox 04/17/2010 ANDREINAL FEEDER SWITCHBOARD OPERATOR, LORETTA L V05.8 Gardasil 04/17/2010 YAHIR FEEDER SWITCHBOARD OPERATOR, LORETTA L V20.2 Well Child 05/05/2010 HEMAL BUCHANAN MD 009.1 Gastroenteritis Infect 05/05/2010 GARRETT FRANK APRN R 009.1 Gastroenteritis Infect 05/05/2010 SIRIA GARCIA APRN 009.1 Gastroenteritis Infect 05/05/2010 YAN SAAVEDRA MD N 009.1 Gastroenteritis Infect 05/05/2010 RICARDA GODDARD DO K 009.1 Gastroenteritis Infect 05/05/2010 LORETTA SINCLAIR APRN L 009.1 Gastroenteritis Infect 05/13/2010 IBAN BUCHANAN MDISTA 789.00 Abdominal Pain Unspecified Site 05/13/2010 HEMAL BUCHANAN MD 791.0 Proteinuria 05/13/2010 GARRETT FRANK APRN R 789.00 Abdominal Pain Unspecified Site 05/13/2010 GARRETT FRANK APRN R 791.0 Proteinuria 05/13/2010 SIRIA GARCIA APRN 789.00 Abdominal Pain Unspecified Site 05/13/2010 SIRIA GARCIA APRN 791.0 Proteinuria 05/13/2010 YAN SAAVEDRA MD N 789.00 Abdominal Pain Unspecified Site 05/13/2010 YAN SAAVEDRA MD N 791.0 Proteinuria 05/13/2010 GODDARD , RICARDA K 789.00 Abdominal Pain Unspecified Site 05/13/2010 GODDARD , RICARDA K 791.0 Proteinuria 05/13/2010 HERMANN SINCLAIR APRNA L 789.00 Abdominal Pain Unspecified Site 05/13/2010 YAHIR BATRES, LORETTA L 791.0 Proteinuria 08/28/2010 HEMAL BUCHANAN MD 276.51 Dehydration 08/28/2010 GARRETT FRANK APRN R 276.51 Dehydration 08/28/2010 SIRIA GARCIA APRN 276.51 Dehydration 08/28/2010 YAN SAAVEDRA MD N 276.51 Dehydration 08/28/2010 RICARDA GODDARD DO K 276.51 Dehydration 08/28/2010 LORETTA SINCLAIR APRN L 276.51 Dehydration 09/12/2010 HEMAL BUCHANAN MD 692.9 Contact Dermatitis And Other Eczema Unspecified Cause 09/12/2010 GARRETT FRANK APRN 692.9 Contact Dermatitis And Other Eczema Unspecified Cause 09/12/2010 SIRIA GARCIA APRN 692.9 Contact Dermatitis And Other Eczema Unspecified Cause 09/12/2010 YAN SAAVEDRA MD 692.9 Contact Dermatitis And Other Eczema Unspecified Cause 09/12/2010 RICARDA GODDARD DO K 692.9 Contact Dermatitis And Other Eczema Unspecified Cause 09/12/2010 LORETTA SINCLAIR APRN 692.9 Contact Dermatitis And Other Eczema Unspecified Cause 11/08/2010 HEMAL BUCHANAN MD 372.30 Conjunctivitis Unspecified 11/08/2010 GARRETT FRANK APRN R 372.30 Conjunctivitis Unspecified 11/08/2010 SIRIA GARCIA APRN 372.30 Conjunctivitis Unspecified 11/08/2010 YAN SAAVEDRA MD 372.30 Conjunctivitis Unspecified 11/08/2010 RICARDA GODDARD DO K 372.30 Conjunctivitis Unspecified 11/08/2010 LORETTA SINCLAIR APRN L 372.30 Conjunctivitis Unspecified 06/05/2011 HEMAL BUCHANAN MD 132.0 Pediculus Capitis (head Louse) 06/05/2011 GARRETT FRANK APRN R 132.0 Pediculus Capitis (head Louse) 06/05/2011 SIRIA GARCIA APRN 132.0 Pediculus Capitis (head Louse) 06/05/2011 YAN SAAVEDRA MD 132.0 Pediculus Capitis (head Louse) 06/05/2011 RICARDA GODDARD DO K 132.0 Pediculus Capitis (head Louse) 06/05/2011 LORETTA SINCLAIR APRN 132.0 Pediculus Capitis (head Louse) 08/26/2011 HEMAL BUCHANAN MD 008.8 GASTROENTERITIS, VIRAL 08/26/2011 GARRETT FRANK APRN 008.8 GASTROENTERITIS, VIRAL 08/26/2011 SIRIA GARCIA APRN 008.8 GASTROENTERITIS, VIRAL 08/26/2011 QUENTIN MD, YAN N 008.8 GASTROENTERITIS, VIRAL 08/26/2011 RICARDA GODDARD DO K 008.8 GASTROENTERITIS, VIRAL 08/26/2011 LORETTA SINCLAIR APRN L 008.8 GASTROENTERITIS, VIRAL 10/13/2011 HEMAL BUCHANAN MD 787.01 NAUSEA WITH VOMITING 10/13/2011 GARRETT FRANK APRN R 787.01 NAUSEA WITH VOMITING 10/13/2011 SIRIA GARCIA APRN 787.01 NAUSEA WITH VOMITING 10/13/2011 YAN SAAVEDRA MD 787.01 NAUSEA WITH VOMITING 10/13/2011 RICARDA GODDARD DO K 787.01 NAUSEA WITH VOMITING 10/13/2011 LORETTA SINCLAIR APRN 787.01 NAUSEA WITH VOMITING 10/27/2011 HEMAL BUCHANAN MD V20.2 WELL CHILD 10/27/2011 GARRETT FRANK APRN R V20.2 WELL CHILD 10/27/2011 SIRIA GARCIA APRN V20.2 WELL CHILD 10/27/2011 YAN SAAVEDRA MD V20.2 WELL CHILD 10/27/2011 RICARDA GODDARD DO K V20.2 WELL CHILD 10/27/2011 LORETTA SINCLAIR APRN V20.2 WELL CHILD 04/18/2013 IBAN BUCHANAN MDISTA 278.00 OBESITY 04/18/2013 HEMAL BUCHANAN MD V70.3 OTHER GENERAL MEDICAL EXAMINATION FOR ADMINISTRATIVE PURPOSES 04/18/2013 GARRETT FRANK APRN R 278.00 OBESITY 04/18/2013 GARRETT FRANK APRN R V70.3 OTHER GENERAL MEDICAL EXAMINATION FOR ADMINISTRATIVE PURPOSES 04/18/2013 SIRIA GARCIA APRN 278.00 OBESITY 04/18/2013 SIRIA GARCIA APRN V70.3 OTHER GENERAL MEDICAL EXAMINATION FOR ADMINISTRATIVE PURPOSES 04/18/2013 YAN SAAVEDRA MD N 278.00 OBESITY 04/18/2013 YAN SAAVEDRA MD V70.3 OTHER GENERAL MEDICAL EXAMINATION FOR ADMINISTRATIVE PURPOSES 04/18/2013 RICARDA GODDARD DO K 278.00 OBESITY 04/18/2013 RICARDA GODDARD DO K V70.3 OTHER GENERAL MEDICAL EXAMINATION FOR ADMINISTRATIVE PURPOSES 04/18/2013 LORETTA SINCLAIR APRN L 278.00 OBESITY 04/18/2013 LORETTA SINCLAIR APRN L V70.3 OTHER GENERAL MEDICAL EXAMINATION FOR ADMINISTRATIVE PURPOSES 09/13/2013 QUENTIN BLACKMON, YAN N 787.01 NAUSEA WITH VOMITING 09/13/2013 YAN SAAVEDRA MD N 787.91 DIARRHEA 09/13/2013 YAN SAAVEDRA MD N 789.00 ABDOMINAL PAIN UNSPECIFIED SITE 09/13/2013 GODDARD DO, RICARDA K 787.01 NAUSEA WITH VOMITING 09/13/2013 GODDARD DO, RICARDA K 787.91 DIARRHEA 09/13/2013 GODDARD DO, RICARDA K 789.00 ABDOMINAL PAIN UNSPECIFIED SITE 09/13/2013 ANDREINAL FEEDER SWITCHBOARD OPERATORLORETTA Victor 787.01 NAUSEA WITH VOMITING 09/13/2013 ANDREINAL FEEDER SWITCHBOARD OPERATORLORETTA Victor 787.91 DIARRHEA 09/13/2013 MADL FEEDER SWITCHBOARD OPERATORLORETTA Victor L 789.00 ABDOMINAL PAIN UNSPECIFIED SITE 2013 GODDARD RICARDA K 535.00 ACUTE GASTRITIS (WITHOUT HEMORRHAGE) 2013 LORETTA SINCLAIR APRN 535.00 ACUTE GASTRITIS (WITHOUT HEMORRHAGE) 10/11/2013 LORE GARCIA APRN Ot 079.99 VIRAL INFECTION NOS 10/11/2013 LORE GARCIA APRN Ot 462 ACUTE PHARYNGITIS 02/21/2014 LORETTA SINCLAIR APRN 692.6 CONTACT DERMATITIS AND OTHER ECZEMA DUE TO PLANTS (EXCEPT FOOD) 02/21/2014 LORETTA SINCLAIR APRN V15.06 PERSONAL HISTORY OF ALLERGY TO INSECTS AND ARACHNIDS 05/30/2016 DARREL HOROWITZ DO, Ot D62 ACUTE POSTHEMORRHAGIC ANEMIA 05/30/2016 DARREL HOROWITZ DO, Ot F12.10 CANNABIS ABUSE, UNCOMPLICATED 05/30/2016 DARREL HOROWITZ DO, Ot O71.82 OTHER SPECIFIED TRAUMA TO PERINEUM AND V 05/30/2016 DARREL HOROWITZ DO, Ot O90.81 ANEMIA OF THE PUERPERIUM 05/30/2016 DARREL HOROWITZ DO, Ot O99.324 DRUG USE COMPLICATING CHILDBIRTH 05/30/2016 DARREL HOROWITZ DO, Ot Z23 ENCOUNTER FOR IMMUNIZATION 05/30/2016 DARREL HOROWITZ DO, Ot Z37.0 SINGLE LIVE 05/30/2016 DARREL HOROWITZ DO, Ot Z3A.37 37 WEEKS GESTATION OF 07/15/2016 LORE GARCIA APRN Ot N39.0 URINARY TRACT INFECTION, SITE NOT SPECIF 07/15/2016 LORE GARCIA APRN Ot R10.31 RIGHT LOWER QUADRANT PAIN 07/16/2016 LORE GARCIA FEEDER SWITCHBOARD OPERATOR Ot N39.0 URINARY TRACT INFECTION, SITE NOT SPECIF 07/16/2016 LORE GARCIA APRN Ot R10.31 RIGHT LOWER QUADRANT PAIN 08/18/2016 RAO BLACKMON, PEDRO T Ot F17.210 NICOTINE DEPENDENCE, CIGARETTES, UNCOMPL 08/18/2016 RAO BLACKMON, PEDRO T Ot H10.33 UNSPECIFIED ACUTE CONJUNCTIVITIS, BILATE 08/18/2016 RAO BLACKMON, PEDRO T Ot H57.9 UNSPECIFIED DISORDER OF EYE AND ADNEXA 08/20/2016 RAO BLACKMON, PEDRO T Ot F17.210 NICOTINE DEPENDENCE, CIGARETTES, UNCOMPL 08/20/2016 RAO BLACKMON, PEDRO T Ot H10.33 UNSPECIFIED ACUTE CONJUNCTIVITIS, BILATE 08/20/2016 RAO BLACKMON, PEDRO T Ot H57.9 UNSPECIFIED DISORDER OF EYE AND ADNEXA 10/17/2016 LORE GARCIA APRN Ot N39.0 URINARY TRACT INFECTION, SITE NOT SPECIF 10/17/2016 LORE GARCIA FEEDER SWITCHBOARD OPERATOR Ot N76.0 ACUTE VAGINITIS 10/17/2016 LORE GARCIA FEEDER SWITCHBOARD OPERATOR Ot N93.9 ABNORMAL UTERINE AND VAGINAL BLEEDING, U 10/20/2016 LORE GARCIA APRN Ot N39.0 URINARY TRACT INFECTION, SITE NOT SPECIF 10/20/2016 LORE GARCIA FEEDER SWITCHBOARD OPERATOR Ot N76.0 ACUTE VAGINITIS 10/20/2016 LORE GARCIA FEEDER SWITCHBOARD OPERATOR Ot N93.9 ABNORMAL UTERINE AND VAGINAL BLEEDING, U 06/11/2017 LORE GARCIA APRN Ot J45.909 UNSPECIFIED ASTHMA, UNCOMPLICATED 06/11/2017 LORE GARCIA APRN Ot K08.89 OTHER SPECIFIED DISORDERS OF TEETH AND S 06/11/2017 LORE GARCIA FEEDER SWITCHBOARD OPERATOR Ot Z87.01 PERSONAL HISTORY OF PNEUMONIA (RECURRENT 06/11/2017 LORE GARCIA APRN Ot Z96.22 MYRINGOTOMY TUBE(S) STATUS 07/04/2017 GARCIALORE OLIVEIRA APRN Ot J45.909 UNSPECIFIED ASTHMA, UNCOMPLICATED 07/04/2017 LORE GARCIA APRN Ot K05.10 CHRONIC GINGIVITIS, PLAQUE INDUCED 07/04/2017 LORE GARCIA APRN Ot K08.89 OTHER SPECIFIED DISORDERS OF TEETH AND S 07/04/2017 LORE GARCIA APRN Ot Z77.22 CNTCT W AND EXPSR TO ENVIRON TOBACCO SMO 07/04/2017 LORE GARCIA APRN Ot Z87.01 PERSONAL HISTORY OF PNEUMONIA (RECURRENT 07/13/2017 SHANON BELLO DO Ot F17.210 NICOTINE DEPENDENCE, CIGARETTES, UNCOMPL 07/13/2017 ACE DO SHANON Jessica Ot J45.909 UNSPECIFIED ASTHMA, UNCOMPLICATED 07/13/2017 SHANON BELLO DO Ot K52.9 NONINFECTIVE GASTROENTERITIS AND COLITIS 07/13/2017 SHANON BELLO DO Ot R11.2 NAUSEA WITH VOMITING, UNSPECIFIED 07/13/2017 SHANON BELLO DO Ot Z87.01 PERSONAL HISTORY OF PNEUMONIA (RECURRENT Procedures Code Description [place] [address] UA W/ CULTURE IF INDICATED 09/13/2013 19744 TEST, URINE (IN- HOUSE) 2013 [id number] REPAIR VULVA, EXTERNAL APPROACH 05/28/2016 [id number] DIVISION OF FEMALE PERINEUM, EXTERNAL AP 05/28/2016 [id number] DELIVERY OF PRODUCTS OF CONCEPTION, EXTE 05/28/2016 Results Test Result Range Urine drug screening test - 05/28/16 05:00 Urine phencyclidine detection by screening method NEGATIVE NEGATIVE Urine benzodiazepines detection by screening method NEGATIVE NEGATIVE Urine cocaine detection NEGATIVE NEGATIVE Urine amphetamines detection by screening method NEGATIVE NEGATIVE Urine methamphetamine detection by screening method NEGATIVE NEGATIVE Urine cannabinoids detection by screening method POSITIVE NEGATIVE Urine opiates detection by screening method NEGATIVE NEGATIVE Urine barbiturates detection NEGATIVE NEGATIVE Screening urine tricyclic antidepressants detection NEGATIVE NEGATIVE Urine methadone detection by screening method NEGATIVE NEGATIVE Urine oxycodone detection NEGATIVE NEGATIVE Urine propoxyphene detection NEGATIVE NEGATIVE Urine buprenophrine screen NEGATIVE NEGATIVE Complete blood count (CBC) with automated white blood cell (WBC) differential - 05/28/16 05:25 Blood leukocytes automated count (number/volume) 14.7 10*3/uL 4.3-11.0 Blood erythrocytes automated count (number/volume) 4.08 10*6/uL 4.35-5.85 Venous blood hemoglobin measurement (mass/volume) 11.4 g/dL 11.5-16.0 Blood hematocrit (volume fraction) 34 % 35-52 Automated erythrocyte mean corpuscular volume 83 [foz_us] 80-99 Automated erythrocyte mean corpuscular hemoglobin (mass per erythrocyte) 28 pg 25-34 Automated erythrocyte mean corpuscular hemoglobin concentration measurement ( mass/volume) 34 g/dL 32-36 Automated erythrocyte distribution width ratio 15.2 % 10.0-14.5 Automated blood platelet count (count/volume) 270 10*3/uL 130-400 Automated blood platelet mean volume measurement 9.8 [foz_us] 7.4-10.4 Automated blood neutrophils/100 leukocytes 83 % 42-75 Automated blood lymphocytes/100 leukocytes 10 % 12-44 Blood monocytes/100 leukocytes 7 % 0-12 Automated blood eosinophils/100 leukocytes 0 % 0-10 Automated blood basophils/100 leukocytes 0 % 0-10 Blood neutrophils automated count (number/volume) 12.2 10*3 1.8-7.8 Blood lymphocytes automated count (number/volume) 1.4 10*3 1.0-4.0 Blood monocytes automated count (number/volume) 1.0 10*3 0.0-1.0 Automated eosinophil count 0.0 10*3/uL 0.0-0.3 Automated blood basophil count (count/volume) 0.0 10*3/uL 0.0-0.1 Blood manual differential performed detection - 05/28/16 05:25 Blood monocytes/100 leukocytes 8 % NRG Manual blood segmented neutrophils/100 leukocytes 75 % NRG Blood band neutrophils/100 leukocytes 2 % NRG Manual blood lymphocytes/100 leukocytes 15 % NRG Manual eosinophils/100 leukocytes in nose 0 % NRG Manual blood basophils/100 leukocytes 0 % NRG Blood anisocytosis detection by light microscopy SLIGHT NRG Blood type T Indirect antibody screen panel - 05/28/16 05:25 ABO+Rh group OP NRG Transfusion band number [id number] NRG Blood group antibody screen NEGATIVE NRG Human immunodeficiency virus (HIV) type 1 and 2 antibody detection - 05/28/16 07:40 Serum HIV 1+2 antibody detection by immunoblot Non-Reactive Non-Reactive Interpretation of HIV-1 and HIV-2 antibody assay See Footnote NRG Body fluid hepatitis B virus surface antigen detection - 05/28/16 07:40 Confirmatory quantitative serum or plasma hepatitis B virus surface antigen measurement Non-Reactive Non-Reactive Serum reagin antibody assay (units/volume) by RPR - 05/28/16 07:40 Serum reagin antibody assay (units/volume) by RPR Non-Reactive NRG Serum rubella virus IgG and IgM panel - 05/28/16 07:40 Serum rubella virus IgG and IgM panel Non-Immune Immune Complete blood count (CBC) with automated white blood cell (WBC) differential - 05/29/16 05:24 Blood leukocytes automated count (number/volume) 11.9 10*3/uL 4.3-11.0 Blood erythrocytes automated count (number/volume) 3.06 10*6/uL 4.35-5.85 Venous blood hemoglobin measurement (mass/volume) 8.5 g/dL 11.5-16.0 Blood hematocrit (volume fraction) 26 % 35-52 Automated erythrocyte mean corpuscular volume 85 [foz_us] 80-99 Automated erythrocyte mean corpuscular hemoglobin (mass per erythrocyte) 28 pg 25-34 Automated erythrocyte mean corpuscular hemoglobin concentration measurement ( mass/volume) 33 g/dL 32-36 Automated erythrocyte distribution width ratio 15.3 % 10.0-14.5 Automated blood platelet count (count/volume) 239 10*3/uL 130-400 Automated blood platelet mean volume measurement 9.8 [foz_us] 7.4-10.4 Automated blood neutrophils/100 leukocytes 70 % 42-75 Automated blood lymphocytes/100 leukocytes 19 % 12-44 Blood monocytes/100 leukocytes 10 % 0-12 Automated blood eosinophils/100 leukocytes 0 % 0-10 Automated blood basophils/100 leukocytes 0 % 0-10 Blood neutrophils automated count (number/volume) 8.3 10*3 1.8-7.8 Blood lymphocytes automated count (number/volume) 2.3 10*3 1.0-4.0 Blood monocytes automated count (number/volume) 1.2 10*3 0.0-1.0 Automated eosinophil count 0.1 10*3/uL 0.0-0.3 Automated blood basophil count (count/volume) 0.0 10*3/uL 0.0-0.1 Complete urinalysis with reflex to culture - 07/15/16 17:15 Urine color determination YELLOW NRG Urine clarity determination SLIGHTLY CLOUDY NRG Urine pH measurement by test strip 7 5-9 Specific gravity of urine by test strip 1.010 1.016- 1.022 Urine protein assay by test strip, semi-quantitative NEGATIVE NEGATIVE Urine glucose detection by automated test strip NEGATIVE NEGATIVE Erythrocytes detection in urine sediment by light microscopy 1+ NEGATIVE Urine ketones detection by automated test strip NEGATIVE NEGATIVE Urine nitrite detection by test strip NEGATIVE NEGATIVE Urine total bilirubin detection by test strip NEGATIVE NEGATIVE Urine urobilinogen measurement by automated test strip (mass/volume) NORMAL NORMAL Urine leukocyte esterase detection by dipstick 3+ NEGATIVE Automated urine sediment erythrocyte count by microscopy (number/high power field) [HPF] NRG Automated urine sediment leukocyte count by microscopy (number/high power field ) [HPF] NRG Bacteria detection in urine sediment by light microscopy FEW NRG Squamous epithelial cells detection in urine sediment by light microscopy 10-25 NRG Crystals detection in urine sediment by light microscopy NONE NRG Casts detection in urine sediment by light microscopy NONE NRG Mucus detection in urine sediment by light microscopy NEGATIVE NRG Complete urinalysis with reflex to culture YES NRG Bacterial urine culture - 07/15/16 17:15 Bacterial urine culture [id number] NRG COLONY COUNT >100,000/ML NRG FTX;REPORTABLE SENSITIVITY NOT USUALLY DONE FOR THIS NRG URINE CULTURE RESULTS PLUS NRG FREE TEXT ENTRY 2 ISOLATE. NRG Complete blood count (CBC) with automated white blood cell (WBC) differential - 07/15/16 17:34 Blood leukocytes automated count (number/volume) 9.8 10*3/uL 4.3-11.0 Blood erythrocytes automated count (number/volume) 4.24 10*6/uL 4.35-5.85 Venous blood hemoglobin measurement (mass/volume) 11.3 g/dL 11.5-16.0 Blood hematocrit (volume fraction) 36 % 35-52 Automated erythrocyte mean corpuscular volume 84 [foz_us] 80-99 Automated erythrocyte mean corpuscular hemoglobin (mass per erythrocyte) 27 pg 25-34 Automated erythrocyte mean corpuscular hemoglobin concentration measurement ( mass/volume) 32 g/dL 32-36 Automated erythrocyte distribution width ratio 14.3 % 10.0-14.5 Automated blood platelet count (count/volume) 373 10*3/uL 130-400 Automated blood platelet mean volume measurement 8.5 [foz_us] 7.4-10.4 Automated blood neutrophils/100 leukocytes 76 % 42-75 Automated blood lymphocytes/100 leukocytes 16 % 12-44 Blood monocytes/100 leukocytes 7 % 0-12 Automated blood eosinophils/100 leukocytes 1 % 0-10 Automated blood basophils/100 leukocytes 0 % 0-10 Blood neutrophils automated count (number/volume) 7.4 10*3 1.8-7.8 Blood lymphocytes automated count (number/volume) 1.6 10*3 1.0-4.0 Blood monocytes automated count (number/volume) 0.7 10*3 0.0-1.0 Automated eosinophil count 0.1 10*3/uL 0.0-0.3 Automated blood basophil count (count/volume) 0.0 10*3/uL 0.0-0.1 Comprehensive metabolic panel - 07/15/16 17:34 Serum or plasma sodium measurement (moles/volume) 138 mmol/L 135-145 Serum or plasma potassium measurement (moles/volume) 4.2 mmol/L 3.6-5.0 Serum or plasma chloride measurement (moles/volume) 107 mmol/L 98-107 Carbon dioxide 20 mmol/L 21-32 Serum or plasma anion gap determination (moles/volume) 11 mmol/L 5-14 Serum or plasma urea nitrogen measurement (mass/volume) 8 mg/dL 7-18 Serum or plasma creatinine measurement (mass/volume) 0.71 mg/dL 0.60-1.30 Serum or plasma urea nitrogen/creatinine mass ratio 11 NRG Serum or plasma creatinine measurement with calculation of estimated glomerular filtration rate > NRG Serum or plasma glucose measurement (mass/volume) 97 mg/dL 70-105 Serum or plasma calcium measurement (mass/volume) 8.9 mg/dL 8.5-10.1 Serum or plasma total bilirubin measurement (mass/volume) 0.2 mg/dL 0.1-1.0 Serum or plasma alkaline phosphatase measurement (enzymatic activity/volume) 71 U/L 60-350 Serum or plasma aspartate aminotransferase measurement (enzymatic activity/ volume) 18 U/L 5-34 Serum or plasma alanine aminotransferase measurement (enzymatic activity/volume ) 21 U/L 0-55 Serum or plasma protein measurement (mass/volume) 6.6 g/dL 6.4-8.2 Serum or plasma albumin measurement (mass/volume) 4.1 g/dL 3.2-4.5 Complete blood count (CBC) with automated white blood cell (WBC) differential - 10/17/16 11:40 Blood leukocytes automated count (number/volume) 8.1 10*3/uL 4.3-11.0 Blood erythrocytes automated count (number/volume) 4.26 10*6/uL 4.35-5.85 Venous blood hemoglobin measurement (mass/volume) 10.6 g/dL 11.5-16.0 Blood hematocrit (volume fraction) 33 % 35-52 Automated erythrocyte mean corpuscular volume 78 [foz_us] 80-99 Automated erythrocyte mean corpuscular hemoglobin (mass per erythrocyte) 25 pg 25-34 Automated erythrocyte mean corpuscular hemoglobin concentration measurement ( mass/volume) 32 g/dL 32-36 Automated erythrocyte distribution width ratio 16.1 % 10.0-14.5 Automated blood platelet count (count/volume) 352 10*3/uL 130-400 Automated blood platelet mean volume measurement 9.0 [foz_us] 7.4-10.4 Automated blood neutrophils/100 leukocytes 78 % 42-75 Automated blood lymphocytes/100 leukocytes 11 % 12-44 Blood monocytes/100 leukocytes 9 % 0-12 Automated blood eosinophils/100 leukocytes 1 % 0-10 Automated blood basophils/100 leukocytes 0 % 0-10 Blood neutrophils automated count (number/volume) 6.4 10*3 1.8-7.8 Blood lymphocytes automated count (number/volume) 0.9 10*3 1.0-4.0 Blood monocytes automated count (number/volume) 0.7 10*3 0.0-1.0 Automated eosinophil count 0.1 10*3/uL 0.0-0.3 Automated blood basophil count (count/volume) 0.0 10*3/uL 0.0-0.1 Serum or plasma choriogonadotropin measurement (units/volume) - 10/17/16 11:40 Serum or plasma choriogonadotropin measurement (units/volume) < m[iU ]/mL <5 ABO+Rh group - 10/17/16 11:40 ABO+Rh group OP NRG Bacteria identification in genital specimen by aerobe culture - 10/17/16 11:49 FREE TEXT EXTERNAL PLUS NORMAL JAY NRG QUANTITY OF GROWTH Abundant Growth NRG Bacteria identification in genital specimen by aerobe culture [id number] NRG Complete urinalysis with reflex to culture - 10/17/16 11:49 Urine color determination YELLOW NRG Urine clarity determination SLIGHTLY CLOUDY NRG Urine pH measurement by test strip 6.5 5-9 Specific gravity of urine by test strip 1.015 1.016- 1.022 Urine protein assay by test strip, semi-quantitative 2+ NEGATIVE Urine glucose detection by automated test strip NEGATIVE NEGATIVE Erythrocytes detection in urine sediment by light microscopy 5+ NEGATIVE Urine ketones detection by automated test strip NEGATIVE NEGATIVE Urine nitrite detection by test strip POSITIVE NEGATIVE Urine total bilirubin detection by test strip NEGATIVE NEGATIVE Urine urobilinogen measurement by automated test strip (mass/volume) 1 mg/dL NORMAL Urine leukocyte esterase detection by dipstick 3+ NEGATIVE Automated urine sediment erythrocyte count by microscopy (number/high power field) NONE NRG Automated urine sediment leukocyte count by microscopy (number/high power field ) TNTC NRG Bacteria detection in urine sediment by light microscopy LARGE NRG Crystals detection in urine sediment by light microscopy NONE NRG Casts detection in urine sediment by light microscopy NONE NRG Mucus detection in urine sediment by light microscopy SMALL NRG Complete urinalysis with reflex to culture YES NRG Bacterial urine culture - 10/17/16 11:49 Bacterial urine culture FOOTNOTE NRG Microscopic examination by wet preparation - 10/17/16 11:49 WET PREP RESULTS FEW CLUE CELLS OBSERVED NRG Neisseria gonorrhoeae DNA detection by probe and signal amplification method - 10/17/16 11:49 Gonorrhea amp DNA-urine Negative Negative Chlamydia trachomatis DNA detection by probe and signal amplification method - 10/17/16 11:49 Chlamydia trachomatis DNA detection by probe and target amplification method Positive Negative Complete blood count (CBC) with automated white blood cell (WBC) differential - 07/13/17 18:50 Blood leukocytes automated count (number/volume) 5.9 10*3/uL 4.3-11.0 Blood erythrocytes automated count (number/volume) 4.63 10*6/uL 4.35-5.85 Venous blood hemoglobin measurement (mass/volume) 13.5 g/dL 11.5-16.0 Blood hematocrit (volume fraction) 40 % 35-52 Automated erythrocyte mean corpuscular volume 86 [foz_us] 80-99 Automated erythrocyte mean corpuscular hemoglobin (mass per erythrocyte) 29 pg 25-34 Automated erythrocyte mean corpuscular hemoglobin concentration measurement ( mass/volume) 34 g/dL 32-36 Automated erythrocyte distribution width ratio 13.6 % 10.0-14.5 Automated blood platelet count (count/volume) 255 10*3/uL 130-400 Automated blood platelet mean volume measurement 9.2 [foz_us] 7.4-10.4 Automated blood neutrophils/100 leukocytes 75 % 42-75 Automated blood lymphocytes/100 leukocytes 13 % 12-44 Blood monocytes/100 leukocytes 10 % 0-12 Automated blood eosinophils/100 leukocytes 1 % 0-10 Automated blood basophils/100 leukocytes 0 % 0-10 Blood neutrophils automated count (number/volume) 4.5 10*3 1.8-7.8 Blood lymphocytes automated count (number/volume) 0.8 10*3 1.0-4.0 Blood monocytes automated count (number/volume) 0.6 10*3 0.0-1.0 Automated eosinophil count 0.1 10*3/uL 0.0-0.3 Automated blood basophil count (count/volume) 0.0 10*3/uL 0.0-0.1 Serum or plasma choriogonadotropin ( test) detection - 07/13/17 18:50 Serum or plasma choriogonadotropin ( test) detection NEGATIVE NEGATIVE Comprehensive metabolic panel - 07/13/17 18:50 Serum or plasma sodium measurement (moles/volume) 140 mmol/L 135-145 Serum or plasma potassium measurement (moles/volume) 3.8 mmol/L 3.6-5.0 Serum or plasma chloride measurement (moles/volume) 105 mmol/L 98-107 Carbon dioxide 23 mmol/L 21-32 Serum or plasma anion gap determination (moles/volume) 12 mmol/L 5-14 Serum or plasma urea nitrogen measurement (mass/volume) 7 mg/dL 7-18 Serum or plasma creatinine measurement (mass/volume) 0.63 mg/dL 0.60-1.30 Serum or plasma urea nitrogen/creatinine mass ratio 11 NRG Serum or plasma creatinine measurement with calculation of estimated glomerular filtration rate > NRG Serum or plasma glucose measurement (mass/volume) 90 mg/dL 70-105 Serum or plasma calcium measurement (mass/volume) 9.1 mg/dL 8.5-10.1 Serum or plasma total bilirubin measurement (mass/volume) 0.3 mg/dL 0.1-1.0 Serum or plasma alkaline phosphatase measurement (enzymatic activity/volume) 54 U/L 40-136 Serum or plasma aspartate aminotransferase measurement (enzymatic activity/ volume) 12 U/L 5-34 Serum or plasma alanine aminotransferase measurement (enzymatic activity/volume ) 16 U/L 0-55 Serum or plasma protein measurement (mass/volume) 6.6 g/dL 6.4-8.2 Serum or plasma albumin measurement (mass/volume) 4.0 g/dL 3.2-4.5 Serum or plasma amylase measurement (enzymatic activity/volume) - 07/13/17 18: 50 Serum or plasma amylase measurement (enzymatic activity/volume) 30 U /L 25-125 Lipase - 07/13/17 18:50 Lipase 9 U/L 8-78 Complete urinalysis with reflex to culture - 07/13/17 19:19 Urine color determination YELLOW NRG Urine clarity determination CLEAR NRG Urine pH measurement by test strip 7 5-9 Specific gravity of urine by test strip 1.005 1.016- 1.022 Urine protein assay by test strip, semi-quantitative NEGATIVE NEGATIVE Urine glucose detection by automated test strip NEGATIVE NEGATIVE Erythrocytes detection in urine sediment by light microscopy NEGATIVE NEGATIVE Urine ketones detection by automated test strip NEGATIVE NEGATIVE Urine nitrite detection by test strip NEGATIVE NEGATIVE Urine total bilirubin detection by test strip NEGATIVE NEGATIVE Urine urobilinogen measurement by automated test strip (mass/volume) NORMAL NORMAL Urine leukocyte esterase detection by dipstick 1+ NEGATIVE Automated urine sediment erythrocyte count by microscopy (number/high power field) NONE NRG Automated urine sediment leukocyte count by microscopy (number/high power field ) [HPF] NRG Bacteria detection in urine sediment by light microscopy NONE NRG Squamous epithelial cells detection in urine sediment by light microscopy 0-2 NRG Crystals detection in urine sediment by light microscopy NONE NRG Casts detection in urine sediment by light microscopy NONE NRG Mucus detection in urine sediment by light microscopy NEGATIVE NRG Complete urinalysis with reflex to culture NO NRG Encounters ACCT No. Visit Date/Time Discharge Status Pt. 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 [facility] ER VAGINAL BLEEDING [id number] 08/18/2016 09:39:00 08/18/2016 10:31:00 DIS Emergency PEDRO YEH MD [facility] ER EYES RED/DRAINING [id number] 07/15/2016 17:06:00 07/15/2016 18:45:00 DIS Emergency LORE 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 OPERATOR [facility] ER LOWER ABD PAIN [id number] 05/28/2016 05:18:00 05/30/2016 14:55:00 DIS Inpatient DARREL HOROWITZ DO S [facility] LDRP FLUID LEAKAGE, CONTRACTIONS [id number] 10/11/2013 19:47:00 10/11/2013 21:38:00 DIS Emergency LORE GARCIA FEEDER SWITCHBOARD OPERATOR [facility] ER SORE THROAT [id number] 02/21/2014 08:32:00 02/21/2014 23:59:59 CLS Outpatient KEVIN SINCLAIR APRNNYA Reji [id number] 2013 14:49:00 2013 23:59:59 CLS Outpatient RICARDA GODDARD DO [id number] 09/13/2013 15:40:00 09/13/2013 23:59:59 CLS Outpatient YAN SAAVEDRA MD [id number] 07/19/2013 14:41:00 07/19/2013 23:59:59 CLS Outpatient SIRIA GARCIA APRN [id number] 06/06/2013 13:02:00 06/06/2013 23:59:59 CLS Outpatient GARRETT FRANK APRN [id number] 04/18/2013 14:00:00 04/18/2013 23:59:59 CLS Outpatient CHANEL BLACKMON, HEMAL
--- NOTE | 2017-10-05 11:09 | ED Abdominal Pain ---
General Chief Complaint: Abdominal/GI Problems Stated Complaint: ABD PAIN History of Present Illness Date Seen by Provider: Oct 05, 2017 Time Seen by Provider: 11:05 Initial Comments PT IS A 21 YEAR OLD FEMALE WITH PRESENTS TO THE ER WITH C/O DIFFUSE ABDOMINAL PAIN. SHE REPORTS PAIN STARTED THIS MORNING AT 0500. SHE DENIES NAUSEA, VOMITING , DIARRHEA AND REPORTS THAT SHE IS CURRENTLY ON HER MENSTRUAL CYCLE. Timing/Duration: 4-6 Hours Severity/Quality: Mild, Cramping, Sharp Location: RUQ, LUQ, RLQ, LLQ Radiation: No Radiation Activities at Onset: None Modifying Factors: Worsens With Palpation Associated Symptoms: Denies Symptoms Allergies and Home Medications Allergies Coded Allergies: Penicillins (Unverified Allergy, Mild, 10/30/08) Home Medications Chlorhexidine Gluconate 473 Ml Mouthwash, 30 ML MM BID Prescribed by: LORE GARCIA on 07/04/17 1405 Ciprofloxacin HCl 500 Mg Tablet, 500 MG PO BID Prescribed by: LORE GARCIA on 10/05/17 1307 Clindamycin HCl 300 Mg Capsule, 300 MG PO TID Prescribed by: LORE GARCIA on 06/11/17 1528 Hydrocodone/Acetaminophen 1 Each Tablet, 1 EACH PO Q4H Prescribed by: LORE GARCIA on 10/05/17 1307 Metronidazole 500 Mg Tablet, 500 MG PO TID Prescribed by: LORE GARCIA on 10/05/17 1307 Ondansetron 4 Mg Tab.rapdis, 4 MG PO Q4H Prescribed by: SHANON BELLO on 07/13/172002 Prednisone 5 Mg Tablet, 5 MG PO UD Prescribed by: LORE GARCIA on 10/05/17 1307 Patient Home Medication List Home Medication List Reviewed: Yes Review of Systems Constitutional: see HPI EENTM: No Symptoms Reported, See HPI Respiratory: No Symptoms Reported, See HPI Cardiovascular: No Symptoms Reported, See HPI Gastrointestinal: See HPI, Abdominal Pain Genitourinary: No Symptoms Reported, See HPI Musculoskeletal: no symptoms reported, see HPI Skin: no symptoms reported, see HPI Psychiatric/Neurological: No Symptoms Reported, See HPI Endocrine: No Symptoms Reported, See HPI Hematologic/Lymphatic: No Symptoms Reported, See HPI Past Kuidubo-Hiuqzu-Apjlvf Hx Patient Social History Type Used: Cigarettes 2nd Hand Smoke Exposure: Yes Recent Foreign Travel: No Contact w/Someone Who Travel: No Recent Hopitalizations: No Immunizations Up To Date Tetanus Booster (TDap): Unknown PED Vaccines UTD: Yes Date of Influenza Vaccine: Jun 24, 2016 Seasonal Allergies Seasonal Allergies: Yes Surgeries History of Surgeries: Yes (BMT'S INFANT) Surgeries: Ear Surgery Respiratory History of Respiratory Disorde: Yes Respiratory Disorders: Asthma, Pneumonia Cardiovascular History of Cardiac Disorders: No Neurological History of Neurological Disord: No Reproductive System Hx Reproductive Disorders: No Sexually Transmitted Disease: No HIV/AIDS: No Female Reproductive Disorders: Denies Genitourinary History of Genitourinary Disor: No Gastrointestinal History of Gastrointestinal Di: No Musculoskeletal History of Musculoskeletal Dis: No Endocrine History of Endocrine Disorders: No HEENT History of HEENT Disorders: Yes (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 Physical Exam Vital Signs VS - Last 72 Hours, by Label 10/05/17 10/05/17 10:55 13:19 Temp 97.9 97.9 Pulse 107 107 Resp 18 18 B/P (MAP) 117/76 Pulse Ox 99 O2 Delivery Room Air Capillary Refill : General Appearance: WD/WN, no apparent distress HEENT: PERRL/EOMI, normal ENT inspection Neck: non-tender, full range of motion Respiratory: normal breath sounds, no respiratory distress, no accessory muscle use Cardiovascular: regular rate, rhythm, no murmur Gastrointestinal: normal bowel sounds, soft, tenderness Extremities: normal range of motion, non-tender Neurologic/Psychiatric: alert, normal mood/affect, oriented x 3 Skin: normal color, warm/dry Progress/Results/Core Measures Results/Orders Lab Results Laboratory Tests Test 10/05/17 11:00 10/05/17 11:15 Range/Units White Blood Count 18.4 H 4.3-11.0 10^3/uL Red Blood Count 4.75 4.35-5.85 10^6/uL Hemoglobin 14.1 11.5-16.0 G/DL Hematocrit 42 35-52 % Mean Corpuscular Volume 88 80-99 FL Mean Corpuscular Hemoglobin 30 25-34 PG Mean Corpuscular Hemoglobin Concent 34 32-36 G/DL Red Cell Distribution Width 14.2 10.0-14.5 % Platelet Count 283 130-400 10^3/uL Mean Platelet Volume 8.7 7.4-10.4 FL Neutrophils (%) (Auto) 87 H 42-75 % Lymphocytes (%) (Auto) 8 L 12-44 % Monocytes (%) (Auto) 5 0-12 % Eosinophils (%) (Auto) 0 0-10 % Basophils (%) (Auto) 0 0-10 % Neutrophils # (Auto) 16.0 H 1.8-7.8 X 10^3 Lymphocytes # (Auto) 1.4 1.0-4.0 X 10^3 Monocytes # (Auto) 1.0 0.0-1.0 X 10^3 Eosinophils # (Auto) 0.0 0.0-0.3 10^3/uL Basophils # (Auto) 0.0 0.0-0.1 10^3/uL Neutrophils % (Manual) 79 % Lymphocytes % (Manual) 11 % Monocytes % (Manual) 4 % Eosinophils % (Manual) 0 % Basophils % (Manual) 0 % Band Neutrophils 6 % Blood Morphology Comment NORMAL Erythrocyte Sedimentation Rate 23 H 0-20 MM/HR Sodium Level 135 135-145 MMOL/L Potassium Level 4.2 3.6-5.0 MMOL/L Chloride Level 106 98-107 MMOL/L Carbon Dioxide Level 19 L 21-32 MMOL/L Anion Gap 10 5-14 MMOL/L Blood Urea Nitrogen 15 7-18 MG/DL Creatinine 0.75 0.60-1.30 MG/DL Estimat Glomerular Filtration Rate > 60 BUN/Creatinine Ratio 20 Glucose Level 107 H 70-105 MG/DL Calcium Level 9.2 8.5-10.1 MG/DL Total Bilirubin 0.6 0.1-1.0 MG/DL Aspartate Amino Transf (AST/SGOT) 11 5-34 U/L Alanine Aminotransferase (ALT/SGPT) 12 0-55 U/L Alkaline Phosphatase 59 40-136 U/L C-Reactive Protein High Sensitivity 7.49 H 0.00-0.50 MG/DL Total Protein 7.5 6.4-8.2 GM/DL Albumin 4.5 3.2-4.5 GM/DL Lipase 5 L 8-78 U/L Urine Color YELLOW Urine Clarity CLEAR Urine pH 6.5 5-9 Urine Specific [place] 1.015 L 1.016-1.022 Urine Protein NEGATIVE NEGATIVE Urine Glucose (UA) NEGATIVE NEGATIVE Urine Ketones 3+ H NEGATIVE Urine Nitrite NEGATIVE NEGATIVE Urine Bilirubin NEGATIVE NEGATIVE Urine Urobilinogen NORMAL NORMAL MG/DL Urine Leukocyte Esterase 2+ H NEGATIVE Urine RBC (Auto) NEGATIVE NEGATIVE Urine RBC NONE /HPF Urine WBC 25-50 H /HPF Urine Squamous Epithelial Cells 2-5 /HPF Urine Crystals NONE /LPF Urine Bacteria FEW H /HPF Urine Casts NONE /LPF Urine Mucus MODERATE H /LPF Urine Culture Indicated YES Urine Test NEGATIVE NEGATIVE My Orders Orders - LORE GARCIA APRN Cbc With Automated Diff (10/05/17 11:02) Comprehensive Metabolic Panel (10/05/17 11:02) Lipase (10/05/17 11:02) Ketorolac Injection (Toradol Injection) (10/05/17 11:15) Ct Abdomen/Pelvis W (10/05/17 11:02) Saline Lock/Iv-Start (10/05/17 11:02) Iohexol Injection (Omnipaque 350 Mg/Ml 1 (10/05/17 11:15) Ns (Ivpb) (Sodium Chloride 0.9%) (10/05/17 11:15) Ua Culture If Indicated (10/05/17 11:09) Hcg,Qualitative Urine (10/05/17 11:09) Manual Differential (10/05/17 11:00) Urine Culture (10/05/17 11:15) Ns Iv 1000 Ml (Sodium Chloride 0.9%) (10/05/17 11:45) Erythrocyte Sedimentation Rate (10/05/17 12:08) Hs C Reactive Protein (10/05/17 12:08) Ceftriaxone Injection (Rocephin Injectio (10/05/17 12:15) Metronidazole Tablet (Flagyl Tablet) (10/05/17 13:15) Medications Given in ED Current Medications Medications Dose Ordered Sig/Charity Route Start Time Stop Time Status Last Admin Dose Admin Ceftriaxone Sodium 1000 mg/ Sodium Chloride 100 ml @ 200 mls/hr ONCE ONCE IV 10/05/17 12:15 10/05/17 12:44 DC 10/05/17 12:24 200 MLS/HR Iohexol 100 ml ONCE ONCE IV 10/05/17 11:15 10/05/17 11:16 DC 10/05/17 11:49 100 ML Ketorolac Tromethamine 30 mg ONCE ONCE IVP 10/05/17 11:15 10/05/17 11:16 DC 10/05/17 11:00 30 MG Metronidazole 500 mg ONCE ONCE PO 10/05/17 13:15 10/05/17 13:16 DC 10/05/17 13:15 500 MG Sodium Chloride 250 ml ONCE ONCE IV 10/05/17 11:15 10/05/17 11:16 DC 10/05/17 11:50 80 ML Vital Signs/I&O Vital Sign - Last 12Hours 10/05/17 10/05/17 10:55 13:19 Temp 97.9 97.9 Pulse 107 107 Resp 18 18 B/P (MAP) 117/76 Pulse Ox 99 O2 Delivery Room Air Diagnostic Imaging Diagonstic Imaging: CT Comments NAME: AXEL NIEVES [facility] REC#: [id number] PT STATUS: REG ER : 1995 PHYSICIAN: LORE GARCIA APRN ADMIT DATE: 10/05/17/ER Draft Date of Exam:10/05/17 CT ABDOMEN/PELVIS W PROCEDURE: CT abdomen and pelvis with contrast. TECHNIQUE: Multiple contiguous axial images were obtained through the abdomen and pelvis after administration of intravenous contrast. INDICATION: Abdominal pain. COMPARISON: CT abdomen and pelvis with IV contrast 07/15/2016. FINDINGS: The lung bases are clear. The liver, gallbladder, pancreas, spleen, adrenals, and appendix are negative. There are a few nonobstructing calyceal tip renal stones in the right kidney measuring up to 0.6 cm. Nonobstructing calyceal tip renal stone in the left kidney measures up to 0.5 cm. No ureteral stones or hydronephrosis. The reproductive structures are grossly unremarkable. No free intraperitoneal air or fluid. No lymphadenopathy. There is mild diffuse colonic wall thickening, greatest in the descending and sigmoid colon. This is new since the prior exam. No diverticula. No evidence of bowel obstruction. No lymphadenopathy. No acute osseous findings. IMPRESSION: 1. There is mild colonic wall thickening, greatest in the sigmoid and descending colon. Although much of the colon is collapsed, this is new since the prior exam. Findings are suspicious for an infectious or inflammatory colitis. No free intraperitoneal air or fluid. No evidence of bowel obstruction. 2. Nonobstructive calyceal tip renal stones in both kidneys, greater on the right. These also appear to have progressed since the prior exam. No ureteral stones or evidence of hydronephrosis. Dictated on workstation # [id number] Dict: 10/05/17 1215 Trans: 10/05/17 1230 [id number] Interpreted by: SRI SHAFER MD Electronically signed by: Departure Communication (Admissions) Progress Notes 1301-patient had a similar presentation of inflammatory stranding around the descending colon on a CT scan in 2016. This is again apparent today. Denies bloody or mucousy stools now or ever. Will treat with inflammatory bowel disease pending further workup. Pain is gone after toradol. Did receive rocephin here IV, will do rx for cipro, flagyl, prednisone, and norco. Follow up with surgery within 3-4 weeks to schedule colonoscopy. Impression Impression: Primary Impression: Urinary tract infection Additional Impression: Colitis Disposition: HOME, SELF-CARE Condition: Improved Departure-Patient Inst. Decision time for Depature: 13:04 Referrals: [facility] (PCP/Family) Primary Care Physician KOKI BAEZ BRETT D DO JENKINS, XAVIER M MD KIDO, TAKAAKI MD Patient Instructions: Acute Abdomen (Belly Pain), Adult (DC) Add. Discharge Instructions: 1. Return to ER for any fevers, worsening pain 2. Antibiotics as directed 3. Follow-up with her regular physician later this week for recheck. Should also make an appointment to see one surgeons listed within the next 3-4 weeks to schedule colonoscopy. All discharge instructions reviewed with patient and/ or family. Voiced understanding. 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
[2017-10-05 11:10] LABS: BASOPHILS % (AUTO) 0 % (0-10); EOSINOPHILS % (AUTO) 0 % (0-10); HEMATOCRIT 42 % (35-52); HEMOGLOBIN 14.1 G/DL (11.5-16.0); LYMPHOCYTES # (AUTO) 1.4 X 10^3 (1.0-4.0); LYMPHOCYTES % (AUTO) 8 % (12-44); MEAN CORPUSCULAR HEMOGLOBIN 30 PG (25-34); MEAN CORPUSCULAR HGB CONC 34 G/DL (32-36); MEAN CORPUSCULAR VOLUME 88 FL (80-99); MEAN PLATELET VOLUME 8.7 FL (7.4-10.4); MONOCYTES % (AUTO) 5 % (0-12); NEUTROPHILS % (AUTO) 87 % (42-75); PLATELET COUNT 283 10^3/uL (130-400); RED BLOOD COUNT 4.75 10^6/uL (4.35-5.85); RED CELL DISTRIBUTION WIDTH 14.2 % (10.0-14.5); WHITE BLOOD COUNT 18.4 10^3/uL (4.3-11.0)
[2017-10-05] MEDS ORDERED: NS 250 ML (IVPB) BAG IV ONE (11:15)
[2017-10-05] MEDS ORDERED: KETOROLAC 30 MG/ML VIAL IVP ONE (11:15)
[2017-10-05] MEDS ORDERED: IOHEXOL 350 MG/ML 100 ML (OMNIPAQUE 350) VIAL IV ONE (11:15)
[2017-10-05 11:26] LABS: ALANINE AMINOTRANSFERASE 12 U/L (0-55); ALBUMIN 4.5 GM/DL (3.2-4.5); ALKALINE PHOSPHATASE 59 U/L (40-136); BILIRUBIN,TOTAL 0.6 MG/DL (0.1-1.0); BUN/CREATININE RATIO 20; CALCIUM 9.2 MG/DL (8.5-10.1); CARBON DIOXIDE 19 MMOL/L (21-32); CHLORIDE 106 MMOL/L (98-107); CREATININE SERUM 0.75 MG/DL (0.60-1.30); GFR ESTIMATED > 60; GLUCOSE 107 MG/DL (70-105); LIPASE 5 U/L (8-78); POTASSIUM 4.2 MMOL/L (3.6-5.0); SODIUM 135 MMOL/L (135-145); TOTAL PROTEIN 7.5 GM/DL (6.4-8.2)
[2017-10-05 11:26] LABS: BILIRUBIN,URINE NEGATIVE (NEGATIVE); CLARITY,URINE CLEAR; COLOR,URINE YELLOW; GLUCOSE, URINE (UA) NEGATIVE (NEGATIVE); KETONES,URINE 3+ (NEGATIVE); LEUKOCYTE ESTERASE ,URINE 2+ (NEGATIVE); NITRITE,URINE NEGATIVE (NEGATIVE); PH,URINE 6.5 (5-9); PROTEIN,URINE NEGATIVE (NEGATIVE); UROBILINOGEN,URINE NORMAL (NORMAL)
[2017-10-05 11:33] LABS: BAND NEUTROPHILS 6 %; BASOPHILS % (MANUAL) 0 %; EOSINOPHILS % (MANUAL) 0 %; LYMPHOCYTES % (MANUAL) 11 %; MONOCYTES % (MANUAL) 4 %; NEUTROPHILS % (MANUAL) 79 %; RBC MORPH NORMAL
[2017-10-05 11:37] LABS: BACTERIA,URINE FEW /HPF; WBC,URINE 25-50 /HPF
[2017-10-05] MEDS ORDERED: NS IV 1000 ML 1,000 ML IV SCH (11:45)
[2017-10-05] MEDS ORDERED: cefTRIAXone INJECTION 1,000 MG in NS (IVPB) 100 ML IV ONE (12:15)
--- NOTE | 2017-10-05 12:30 | Diagnostic Imaging Report ---
PROCEDURE: CT abdomen and pelvis with contrast. TECHNIQUE: Multiple contiguous axial images were obtained through the abdomen and pelvis after administration of intravenous contrast. INDICATION: Abdominal pain. COMPARISON: CT abdomen and pelvis with IV contrast 07/15/2016. FINDINGS: The lung bases are clear. The liver, gallbladder, pancreas, spleen, adrenals, and appendix are negative. There are a few nonobstructing calyceal tip renal stones in the right kidney measuring up to 0.6 cm. Nonobstructing calyceal tip renal stone in the left kidney measures up to 0.5 cm. No ureteral stones or hydronephrosis. The reproductive structures are grossly unremarkable. No free intraperitoneal air or fluid. No lymphadenopathy. There is mild diffuse colonic wall thickening, greatest in the descending and sigmoid colon. This is new since the prior exam. No diverticula. No evidence of bowel obstruction. No lymphadenopathy. No acute osseous findings. IMPRESSION: 1. There is mild colonic wall thickening, greatest in the sigmoid and descending colon. Although much of the colon is collapsed, this is new since the prior exam. Findings are suspicious for an infectious or inflammatory colitis. No free intraperitoneal air or fluid. No evidence of bowel obstruction. 2. Nonobstructive calyceal tip renal stones in both kidneys, greater on the right. These also appear to have progressed since the prior exam. No ureteral stones or evidence of hydronephrosis. Dictated by: Dictated on workstation # [id number]
[2017-10-05] MEDS ORDERED: PRED5TAB PO (13:07)
[2017-10-05] MEDS ORDERED: HYDR-757 PO (13:07)
[2017-10-05] MEDS ORDERED: CIPR-225 PO (13:07)
[2017-10-05] MEDS ORDERED: METR500T PO (13:07)
[2017-10-05] MEDS ORDERED: metroNIDAZOLE 500 MG (FLAGYL) TAB PO ONE (13:15)
== END 2017-10-05 13:20 | disposition home or self-care (01) ==
LOC: EDUNIT# 10:47 → ER 10:48
DX: N39.0 Urinary tract infection, site not specified (principal); K52.9 Noninfective gastroenteritis and colitis, unspecified; J45.909 Unspecified asthma, uncomplicated; Z79.52 Long term (current) use of systemic steroids; Z77.22 Contact with and (suspected) exposure to environmental tobacco smoke (acute) (chronic); Z87.01 Personal history of pneumonia (recurrent); Z88.0 Allergy status to penicillin; Z32.02 Encounter for pregnancy test, result negative
CPT/HCPCS: 36415; 74177; 80053; 81000; 83690; 84703; 85007; 85027; 85652; 86141; 87088; 96361; 96374; 96375

== ENCOUNTER 2017-12-12 19:51 | Emergency (ER) | payer MEDICAID ==
[~2017-12-12] VITALS: Ht 160 cm; Wt 72.6 kg
[~2017-12-12 19:51] MED LIST changes: +CIPR-225 PO; +HYDR-757 PO; +PRED5TAB PO
--- OUTSIDE RECORDS SUMMARY | 2017-12-12 19:56 | XMS REPORT | Clinical Summary ---
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
--- OUTSIDE RECORDS SUMMARY | 2017-12-12 19:58 | XMS REPORT | Continuity of Care Document ---
Author Author [facility] Organization [facility] Address Unknown Phone Unavailable Allergies Active Description Code Type Severity Reaction Onset Reported/Identified Relationship to Patient Clinical Status Yes Penicillins Drug Allergy N/A N/A 10/29/2008 Yes Penicillins [id number] Drug Allergy Mild N/A 10/30/2008 Medications There [...] Syndrome) 01/16/2009 HEMAL BUCHANAN MD V06.1 Dtp/dtap, Swmvshdoth-yykxdwm-hvtgztvme Combined 01/16/2009 GARRETT FRANK APRN V06.1 Dtp/dtap, Nvgkhgisyo-nttyjrt-wttllrdhf Combined 01/16/2009 SIRIA GARCIA APRN V06.1 Dtp/dtap, Efejwytgpr-yvbenft-nnteietgg Combined 01/16/2009 YAN SAAVEDRA MD V06.1 Dtp/dtap, Yfmyqtflod-omnntkd-epnumlisw Combined 01/16/2009 RICARDA OGDDARD DO K V06.1 Dtp/dtap, Yduyvabydq-yqqsllx-zrfeyvcag Combined 01/16/2009 LORETTA SINCLAIR APRN L V06.1 Dtp/dtap, Jfaurwhjyi-tncqyqo-kbbeobekm Combined 01/28/2009 HEMAL BUCHANAN MD 078.10 Viral [...] 03/30/2009 SIRIA GARCIA APRN 786.2 Cough 03/30/2009 YAN SAAVEDRA MD 462 Sore Throat 03/30/2009 YAN [...] Flatulence, Eructation, And Gas Pain 06/26/2009 HEMAL BCUHANAN MD 388.7 OTALGIA 06/26/2009 GARRETT FRANK APRN [...] FRANK APRN R 787.91 Diarrhea 07/22/2009 SIRIA GARCIA APRN 787.01 Nausea With Vomiting 07/22/2009 SIRIA [...] APRN L 465.9 Upper Respiratory Infection 10/29/2009 HEMAL BUCHANAN MD 079.99 Viral Syndrome 10/29/2009 GARRETT [...] And Unspecified Sites Without Infection 11/20/2009 MADL INTERIOR DESIGN COORDINATOR, LORETTA L 782.1 Rash 11/20/2009 MADL INTERIOR DESIGN COORDINATOR, LORETTA L 919.4 Insect Bite Nonvenomous Of Other Multiple And Unspecified Sites Without Infection 04/17/2010 CHANEL BLACKMON, HEMAL 278.02 OVERWEIGHT 04/17/2010 CHANEL BLACKMON, HEMAL V01.84 Meningococcal Vaccine 04/17/2010 CHANEL BLACKMON, HEMAL V04.81 Flu Shot 04/17/2010 CHANEL BLACKMON, HEMAL V05.3 Hepatitis A Vaccine 04/17/2010 CHANEL BLACKMON, HEMAL V05.4 Varicella, Chickenpox 04/17/2010 CHANEL BLACKMON, HEMAL V05.8 Gardasil 04/17/2010 CHANEL BLACKMON, HEMAL V20.2 Well Child 04/17/2010 GARRETT FRANK APRN R 278.02 OVERWEIGHT 04/17/2010 GENET FRANK APRNIA R V01.84 Meningococcal Vaccine 04/17/2010 GARRETT FRANK APRN R V04.81 Flu Shot 04/17/2010 GARRETT FRANK APRN R V05.3 Hepatitis A Vaccine 04/17/2010 FRANK INTERIOR DESIGN COORDINATOR, GARRETT R V05.4 Varicella, Chickenpox 04/17/2010 ZAC INTERIOR DESIGN COORDINATOR, GARRETT R V05.8 Gardasil 04/17/2010 GENET FRANK [...] GODDARD DO V20.2 Well Child 04/17/2010 YAHIR INTERIOR DESIGN COORDINATORKAILYNLORETTA L 278.02 OVERWEIGHT 04/17/2010 MADReji INTERIOR DESIGN COORDINATOR, LORETTA L V01.84 Meningococcal Vaccine 04/17/2010 MADReji INTERIOR DESIGN COORDINATOR, LORETTA L V04.81 Flu Shot 04/17/2010 YAHIR INTERIOR DESIGN COORDINATORKEVIN VictorNYA L V05.3 Hepatitis A Vaccine 04/17/2010 MADL INTERIOR DESIGN COORDINATOR, LORETTA L V05.4 Varicella, Chickenpox 04/17/2010 ANDREINAL INTERIOR DESIGN COORDINATOR, LORETTA L V05.8 Gardasil 04/17/2010 YAHIR INTERIOR DESIGN COORDINATOR, LORETTA L V20.2 Well Child 05/05/2010 HEMAL [...] 789.00 ABDOMINAL PAIN UNSPECIFIED SITE 09/13/2013 ANDREINAL INTERIOR DESIGN COORDINATORLORETTA Victor 787.01 NAUSEA WITH VOMITING 09/13/2013 ANDREINAL INTERIOR DESIGN COORDINATORLORETTA Victor 787.91 DIARRHEA 09/13/2013 MADL INTERIOR DESIGN COORDINATORLORETTA Victor L 789.00 ABDOMINAL PAIN UNSPECIFIED SITE 2013 GDODARD RICARDA K 535.00 ACUTE GASTRITIS (WITHOUT HEMORRHAGE) [...] RIGHT LOWER QUADRANT PAIN 07/16/2016 LORE GARCIA INTERIOR DESIGN COORDINATOR Ot N39.0 URINARY TRACT INFECTION, SITE NOT [...] INFECTION, SITE NOT SPECIF 10/17/2016 LORE GARCIA INTERIOR DESIGN COORDINATOR Ot N76.0 ACUTE VAGINITIS 10/17/2016 LORE GARCIA INTERIOR DESIGN COORDINATOR Ot N93.9 ABNORMAL UTERINE AND VAGINAL BLEEDING, U 10/20/2016 LORE GARCIA APRN Ot N39.0 URINARY TRACT INFECTION, SITE NOT SPECIF 10/20/2016 LORE GARCIA INTERIOR DESIGN COORDINATOR Ot N76.0 ACUTE VAGINITIS 10/20/2016 LORE GARCIA INTERIOR DESIGN COORDINATOR Ot N93.9 ABNORMAL UTERINE AND VAGINAL BLEEDING, U 06/11/2017 LORE GARCIA APRN Ot J45.909 UNSPECIFIED ASTHMA, UNCOMPLICATED 06/11/2017 LORE GARCIA APRN Ot K08.89 OTHER SPECIFIED DISORDERS OF TEETH AND S 06/11/2017 LORE GARCIA INTERIOR DESIGN COORDINATOR Ot Z87.01 PERSONAL HISTORY OF PNEUMONIA (RECURRENT [...] Z87.01 PERSONAL HISTORY OF PNEUMONIA (RECURRENT 07/13/2017 ACE DO, SHANON K Ot F17.210 NICOTINE DEPENDENCE, CIGARETTES, UNCOMPL 07/13/2017 ACE DO, SHANON K Ot J45.909 UNSPECIFIED ASTHMA, UNCOMPLICATED 07/13/2017 ACE DO, SHANON K Ot K52.9 NONINFECTIVE GASTROENTERITIS AND COLITIS 07/13/2017 ACE DO, SHANON K Ot R11.2 NAUSEA WITH VOMITING, UNSPECIFIED 07/13/2017 ACE DO, SHANON K Ot Z87.01 PERSONAL HISTORY OF PNEUMONIA (RECURRENT 10/07/2017 LORE GARCIA APRN Ot J45.909 UNSPECIFIED ASTHMA, UNCOMPLICATED 10/07/2017 LORE GARCIA APRN Ot K52.9 NONINFECTIVE GASTROENTERITIS AND COLITIS 10/07/2017 LORE GARCIA APRN Ot N39.0 URINARY TRACT INFECTION, SITE NOT SPECIF 10/07/2017 LORE GARCIA APRN Ot R10.11 RIGHT UPPER QUADRANT PAIN 10/07/2017 LORE GARCIA APRN Ot Z32.02 ENCOUNTER FOR TEST, RESULT NEG 10/07/2017 LORE GARCIA APRN Ot Z77.22 CNTCT W AND EXPSR TO ENVIRON TOBACCO SMO 10/07/2017 LORE GARCIA APRN Ot Z79.52 [facility] (CURRENT) USE OF SYSTEMIC STER 10/07/2017 LORE GARCIA APRN Ot Z87.01 PERSONAL HISTORY OF PNEUMONIA (RECURRENT 10/07/2017 LORE GARCIA APRN Ot Z88.0 ALLERGY STATUS TO PENICILLIN 11/29/2017 ABBY SCHULER Ot J45.909 UNSPECIFIED ASTHMA, UNCOMPLICATED 11/29/2017 ABBY SCHULER Ot K59.00 CONSTIPATION, UNSPECIFIED 11/29/2017 ABBY SCHULER Ot Z77.22 CNTCT W AND EXPSR TO ENVIRON TOBACCO SMO 11/29/2017 ABBY SCHULER Ot 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 11/29/2017 ABBY SCHULER Ot Z87.01 PERSONAL HISTORY OF PNEUMONIA (RECURRENT 11/29/2017 ABBY SCHULER Ot Z88.0 ALLERGY STATUS TO PENICILLIN Procedures Code Description [place] [address] UA W/ CULTURE IF INDICATED 09/13/2013 75801 TEST, URINE (IN- HOUSE) 2013 [id number] REPAIR VULVA, EXTERNAL APPROACH 05/28/2016 [id number] DIVISION OF FEMALE PERINEUM, EXTERNAL AP 05/28/2016 [id number] DELIVERY OF PRODUCTS OF CONCEPTION, EXTE 05/28/2016 [...] ABO+Rh group OP NRG Transfusion band number [id number] NRG Blood group antibody screen NEGATIVE NRG [...] culture - 07/15/16 17:15 Bacterial urine culture [id number] NRG COLONY COUNT >100,000/ML NRG FTX;REPORTABLE SENSITIVITY [...] identification in genital specimen by aerobe culture [id number] NR Complete urinalysis with reflex to culture - [...] urinalysis with reflex to culture NO NRG CULTURE, GENITAL - 08/26/17 17:00 CULTURE, GENITAL SEE NOTE NRG Complete blood count (CBC) with automated white blood cell (WBC) differential - 10/05/17 11:00 Blood leukocytes automated count (number/volume) 18.4 10*3/uL 4.3-11.0 Blood erythrocytes automated count (number/volume) 4.75 10*6/uL 4.35-5.85 Venous blood hemoglobin measurement (mass/volume) 14.1 g/dL 11.5-16.0 Blood hematocrit (volume fraction) 42 % 35-52 Automated erythrocyte mean corpuscular volume 88 [foz_us] 80-99 Automated erythrocyte mean corpuscular hemoglobin (mass per erythrocyte) 30 pg 25-34 Automated erythrocyte mean corpuscular hemoglobin concentration measurement ( mass/volume) 34 g/dL 32-36 Automated erythrocyte distribution width ratio 14.2 % 10.0-14.5 Automated blood platelet count (count/volume) 283 10*3/uL 130-400 Automated blood platelet mean volume measurement 8.7 [foz_us] 7.4-10.4 Automated blood neutrophils/100 leukocytes 87 % 42-75 Automated blood lymphocytes/100 leukocytes 8 % 12-44 Blood monocytes/100 leukocytes 5 % 0-12 Automated blood eosinophils/100 leukocytes 0 % 0-10 Automated blood basophils/100 leukocytes 0 % 0-10 Blood neutrophils automated count (number/volume) 16.0 10*3 1.8-7.8 Blood lymphocytes automated count (number/volume) 1.4 10*3 1.0-4.0 Blood monocytes automated count (number/volume) 1.0 10*3 0.0-1.0 Automated eosinophil count 0.0 10*3/uL 0.0-0.3 Automated blood basophil count (count/volume) 0.0 10*3/uL 0.0-0.1 Comprehensive metabolic panel - 10/05/17 11:00 Serum or plasma sodium measurement (moles/volume) 135 mmol/L 135-145 Serum or plasma potassium measurement (moles/volume) 4.2 mmol/L 3.6-5.0 Serum or plasma chloride measurement (moles/volume) 106 mmol/L 98-107 Carbon dioxide 19 mmol/L 21-32 Serum or plasma anion gap determination (moles/volume) 10 mmol/L 5-14 Serum or plasma urea nitrogen measurement (mass/volume) 15 mg/dL 7-18 Serum or plasma creatinine measurement (mass/volume) 0.75 mg/dL 0.60-1.30 Serum or plasma urea nitrogen/creatinine mass ratio 20 NRG Serum or plasma creatinine measurement with calculation of estimated glomerular filtration rate > NRG Serum or plasma glucose measurement (mass/volume) 107 mg/dL 70-105 Serum or plasma calcium measurement (mass/volume) 9.2 mg/dL 8.5-10.1 Serum or plasma total bilirubin measurement (mass/volume) 0.6 mg/dL 0.1-1.0 Serum or plasma alkaline phosphatase measurement (enzymatic activity/volume) 59 U/L 40-136 Serum or plasma aspartate aminotransferase measurement (enzymatic activity/ volume) 11 U/L 5-34 Serum or plasma alanine aminotransferase measurement (enzymatic activity/volume ) 12 U/L 0-55 Serum or plasma protein measurement (mass/volume) 7.5 g/dL 6.4-8.2 Serum or plasma albumin measurement (mass/volume) 4.5 g/dL 3.2-4.5 Lipase - 10/05/17 11:00 Lipase 5 U/L 8-78 Blood manual differential performed detection - 10/05/17 11:00 Blood monocytes/100 leukocytes 4 % NRG Manual blood segmented neutrophils/100 leukocytes 79 % NRG Blood band neutrophils/100 leukocytes 6 % NRG Manual blood lymphocytes/100 leukocytes 11 % NRG Manual eosinophils/100 leukocytes in nose 0 % NRG Manual blood basophils/100 leukocytes 0 % NRG Blood erythrocyte morphology finding identification NORMAL NRG Serum or plasma C reactive protein measurement (mass/volume) - 10/05/17 11:00 Serum or plasma C reactive protein measurement (mass/volume) 7.49 mg /dL 0.00-0.50 Erythrocyte sedimentation rate by westergren method - 10/05/17 11:00 Erythrocyte sedimentation rate by westergren method 23 mm 0-20 Urine beta human chorionic gonadotropin (hCG) measurement - 10/05/17 11:15 Urine beta human chorionic gonadotropin (hCG) measurement NEGATIVE NEGATIVE Complete urinalysis with reflex to culture - 10/05/17 11:15 Urine color determination YELLOW NRG Urine clarity determination CLEAR NRG Urine pH measurement by test strip 6.5 5-9 Specific gravity of urine by test strip 1.015 1.016- 1.022 Urine protein assay by test strip, semi-quantitative NEGATIVE NEGATIVE Urine glucose detection by automated test strip NEGATIVE NEGATIVE Erythrocytes detection in urine sediment by light microscopy NEGATIVE NEGATIVE Urine ketones detection by automated test strip 3+ NEGATIVE Urine nitrite detection by test strip NEGATIVE NEGATIVE Urine total bilirubin detection by test strip NEGATIVE NEGATIVE Urine urobilinogen measurement by automated test strip (mass/volume) NORMAL NORMAL Urine leukocyte esterase detection by dipstick 2+ NEGATIVE Automated urine sediment erythrocyte count by microscopy (number/high power field) NONE NRG Automated urine sediment leukocyte count by microscopy (number/high power field ) [HPF] NRG Bacteria detection in urine sediment by light microscopy FEW NRG Squamous epithelial cells detection in urine sediment by light microscopy 2-5 NRG Crystals detection in urine sediment by light microscopy NONE NRG Casts detection in urine sediment by light microscopy NONE NRG Mucus detection in urine sediment by light microscopy MODERATE NRG Complete urinalysis with reflex to culture YES NRG Bacterial urine culture - 10/05/17 11:15 URINE CULTURE RESULTS <10,000/ML NRG Encounters ACCT No. Visit Date/Time Discharge Status Pt. Type Provider Facility Loc./Unit Complaint [id number] 11/29/2017 20:11:00 11/29/2017 22:15:00 DIS Emergency ABBY SCHULER [facility] ER STOMACH PAIN [id number] 10/05/2017 10:48:00 10/05/2017 13:20:00 DIS Outpatient LORE GARCIA APRN [facility] ER ABD PAIN [id number] 07/13/2017 18:29:00 07/13/2017 20:15:00 DIS Emergency ACE SHANON JAIN K [facility] ER VOMITING [id number] 07/04/2017 13:51:00 07/04/2017 14:10:00 DIS Emergency LORE GARCIA APRN [facility] ER DENTAL PAIN/PRESSURE [id number] 06/11/2017 14:57:00 06/11/2017 15:33:00 DIS Emergency LORE GARCIA APRN [facility] ER TEETH PAIN [id number] 10/17/2016 11:36:00 10/17/2016 13:16:00 DIS Emergency LORE GARCIA APRN [facility] ER VAGINAL BLEEDING [id number] 08/18/2016 09:39:00 08/18/2016 10:31:00 DIS Emergency PEDRO YEH MD [facility] ER EYES RED/DRAINING [id number] 07/15/2016 17:06:00 07/15/2016 18:45:00 DIS Emergency LORE GARCIA APRN [facility] ER LOWER ABD PAIN [id number] 05/28/2016 05:18:00 05/30/2016 14:55:00 DIS Inpatient CARLOS MANUEL JAIN DARREL S [facility] LDRP FLUID LEAKAGE, CONTRACTIONS [id number] 10/11/2013 19:47:00 10/11/2013 21:38:00 DIS Emergency LORE GARCIA APRN [facility] ER SORE THROAT [id number] 02/21/2014 08:32:00 02/21/2014 23:59:59 CLS Outpatient MADL INTERIOR DESIGN COORDINATORLORETTA Victor [id number] 2013 14:49:00 2013 23:59:59 CLS Outpatient GODDARD DO, RICARDA K [id number] 09/13/2013 15:40:00 09/13/2013 23:59:59 CLS Outpatient YAN SAAVEDRA MD [id number] 07/19/2013 14:41:00 07/19/2013 23:59:59 CLS Outpatient SIRIA GARCIA APRN [id number] 06/06/2013 13:02:00 06/06/2013 23:59:59 CLS Outpatient GARRETT FRANK APRN [id number] 04/18/2013 14:00:00 04/18/2013 23:59:59 [place] [id number] 09/10/2017 08:40:00 09/10/2017 23:59:59 CLS Outpatient HEMAL BUCHANAN MD [facility] [id number] 08/26/2017 16:20:00 Document Registration
[2017-12-12] MEDS ORDERED: RX-MUPIROCIN (BACTROBAN) 2% OINT 22 GM TUBE TOP STA (20:25)
[2017-12-12] MEDS ORDERED: TRIM/SULFAMETH 160/800 (SEPTRA DS) TAB PO ONE (20:30)
[2017-12-12] MEDS ORDERED: RX-HYDROCODONE/APAP 5/325 MG #4 TAB PK PO PRN (20:30)
[2017-12-12] MEDS ORDERED: HYDR-757 PO (20:31)
[2017-12-12] MEDS ORDERED: SULF1TAB35 PO (20:31)
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
[2017-12-12 20:38] VITALS: BP 0/0
[2017-12-12] MEDS ORDERED: TETANUS,DIPTH,PERTUSS P/F (BOOSTRIX) 0.5 ML VIAL IM ONE (20:45)
== END 2017-12-12 20:38 | disposition home or self-care (01) ==
LOC: EDUNIT# 19:51 → ER 19:52
DX: T24.131A Burn of first degree of right lower leg, initial encounter (principal); L08.9 Local infection of the skin and subcutaneous tissue, unspecified; J45.909 Unspecified asthma, uncomplicated; F17.210 Nicotine dependence, cigarettes, uncomplicated; Z88.0 Allergy status to penicillin; X19.XXXA Contact with other heat and hot substances, initial encounter
CPT/HCPCS: 99283

== ENCOUNTER 2017-12-19 17:51 | Emergency (ER) | payer MEDICAID ==
[~2017-12-19] VITALS: Ht 160 cm; Wt 72.6 kg
[2017-12-19 18:57] LABS: CLARITY,URINE CLEAR; COLOR,URINE YELLOW; PH,URINE 7 (5-9)
[2017-12-19 18:58] LABS: BILIRUBIN,URINE NEGATIVE (NEGATIVE); GLUCOSE, URINE (UA) NEGATIVE (NEGATIVE); KETONES,URINE NEGATIVE (NEGATIVE); LEUKOCYTE ESTERASE ,URINE 1+ (NEGATIVE); NITRITE,URINE NEGATIVE (NEGATIVE); PROTEIN,URINE NEGATIVE (NEGATIVE); SQUAMOUS EPITHELIAL CELL,UR RARE /HPF; UROBILINOGEN,URINE NORMAL (NORMAL); WBC,URINE RARE /HPF
[2017-12-19 20:18] LABS: BASOPHILS % (AUTO) 0 % (0-10); EOSINOPHILS % (AUTO) 0 % (0-10); HEMATOCRIT 35 % (35-52); HEMOGLOBIN 11.5 G/DL (11.5-16.0); LYMPHOCYTES # (AUTO) 1.4 X 10^3 (1.0-4.0); LYMPHOCYTES % (AUTO) 9 % (12-44); MEAN CORPUSCULAR HEMOGLOBIN 28 PG (25-34); MEAN CORPUSCULAR HGB CONC 33 G/DL (32-36); MEAN CORPUSCULAR VOLUME 87 FL (80-99); MEAN PLATELET VOLUME 8.6 FL (7.4-10.4); MONOCYTES # (AUTO) 1.2 X 10^3 (0.0-1.0); MONOCYTES % (AUTO) 8 % (0-12); NEUTROPHILS # (AUTO) 12.6 X 10^3 (1.8-7.8); NEUTROPHILS % (AUTO) 83 % (42-75); PLATELET COUNT 436 10^3/uL (130-400); RED BLOOD COUNT 4.05 10^6/uL (4.35-5.85); RED CELL DISTRIBUTION WIDTH 14.1 % (10.0-14.5); WHITE BLOOD COUNT 15.2 10^3/uL (4.3-11.0)
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
[2017-12-19 20:36] LABS: BAND NEUTROPHILS 2 %; BASOPHILS % (MANUAL) 0 %; EOSINOPHILS % (MANUAL) 0 %; LYMPHOCYTES % (MANUAL) 8 %
[2017-12-19 20:37] LABS: MONOCYTES % (MANUAL) 14 %; NEUTROPHILS % (MANUAL) 76 %
[2017-12-19 20:38] LABS: RBC MORPH NORMAL
[2017-12-19 20:39] VITALS: BP 112/62
[2017-12-19 21:00] LABS: AMPHETAMINE SCREEN, URINE POSITIVE (NEGATIVE); BARBITURATE SCREEN URINE NEGATIVE (NEGATIVE); BENZODIAZEPINES SCREEN URINE NEGATIVE (NEGATIVE); CANNABINOID SCREEN, URINE POSITIVE (NEGATIVE); COCAINE SCREEN URINE NEGATIVE (NEGATIVE); METHADONE STAT NEGATIVE (NEGATIVE); METHAMPHETAMINE SCREEN URINE S NEGATIVE (NEGATIVE); OPIATE SCREEN URINE NEGATIVE (NEGATIVE); OXYCODONE STAT NEGATIVE (NEGATIVE); PROPOXYPHENE STAT NEGATIVE (NEGATIVE); TRICYCLIC ANTIDEPRESSANTS SCRE NEGATIVE (NEGATIVE)
--- OUTSIDE RECORDS SUMMARY | 2017-12-20 16:34 | XMS REPORT | Clinical Summary ---
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
== END 2017-12-19 20:38 | disposition home or self-care (01) ==
LOC: EDUNIT# 17:51 → ER 17:52
DX: N92.5 Other specified irregular menstruation (principal); J45.909 Unspecified asthma, uncomplicated; F17.210 Nicotine dependence, cigarettes, uncomplicated; Z87.01 Personal history of pneumonia (recurrent); Z32.02 Encounter for pregnancy test, result negative; Z79.52 Long term (current) use of systemic steroids; Z88.0 Allergy status to penicillin
CPT/HCPCS: 36415; 80306; 81000; 84703; 85007; 85027; 99283

== ENCOUNTER 2017-12-31 12:30 | Outpatient (CLI) | payer MEDICAID ==
[~2017-12-31] VITALS: Ht 160 cm; Wt 72.6 kg
== END 2017-12-31 13:00 ==
LOC: PREOP 12:30
PROVIDERS: ATTEND Surgery
DX: Z01.818 Encounter for other preprocedural examination (principal); Z87.19 Personal history of other diseases of the digestive system

== ENCOUNTER 2018-03-06 12:31 | Emergency (ER) | payer MEDICAID ==
[~2018-03-06] VITALS: Ht 160 cm; Wt 74.8 kg
--- NOTE | 2018-03-06 12:52 | ED Abdominal Pain ---
General Chief Complaint: Abdominal/GI Problems Stated Complaint: PAIN IN LOWER ADB Source of Information: Patient Exam Limitations: No Limitations History of Present Illness Date Seen by Provider: Mar 06, 2018 Time Seen by Provider: 12:41 Initial Comments The patient presents to ER by private conveyance with a chief complaint of diffuse abdominal pain. She's been constipated the last couple days has been using stool softeners without effect. Says she drinks a lot of water but her dad thought she might become but insisted that she come get checked out the ER as she came and. She's having no fevers chills nausea vomiting, cough, shortness of breath, chest pain. She's had no history of surgeries on her abdomen. She has no medical problems and does not take any medicines routinely. Last missed her period started about one week ago. She still on her period. She says she is not currently sexually active. Denies any dysuria or discharge. Allergies and Home Medications Allergies Coded Allergies: Penicillins (Unverified Allergy, Mild, 12/19/17) Home Medications No Active Prescriptions or Reported Meds Patient Home Medication List Home Medication List Reviewed: Yes Review of Systems Constitutional: No chills, No diaphoresis EENTM: No Blurred Vision, No Double Vision Respiratory: Denies Cough, Denies Shortness of Air Cardiovascular: Denies Chest Pain, Denies Edema Gastrointestinal: Denies Abdomen Distended; Abdominal Pain Genitourinary: Denies Burning, Denies Discharge Musculoskeletal: No back pain, No joint pain Past Dukjera-Oqfzqt-Juctwp Hx Patient Social History Alcohol Use: Denies Use Recreational Drug Use: No Smoking Status: Former Smoker Type Used: Cigarettes Former Smoker, Quit: December 23, 2017 2nd Hand Smoke Exposure: Yes Recent Foreign Travel: No Contact w/Someone Who Travel: No Recent Hopitalizations: No Immunizations Up To Date Tetanus Booster (TDap): Unknown PED Vaccines UTD: Yes Date of Influenza Vaccine: Jun 24, 2016 Seasonal Allergies Seasonal Allergies: Yes Past Medical History Surgeries: Yes ([facility]S INFANT) Ear Surgery Respiratory: Yes Asthma Cardiac: No Neurological: No Reproductive Disorders: No Female Reproductive Disorders: Denies Sexually Transmitted Disease: No HIV/AIDS: No Genitourinary: No Gastrointestinal: No Colitis Musculoskeletal: No Endocrine: No 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 Physical Exam Vital Signs Vital Signs - First Documented 03/06/18 12:55 Temp 97.0 Pulse 97 Resp 18 B/P (MAP) 121/66 (84) Pulse Ox 99 Capillary Refill : Height/Weight/BMI Height: 5'3.00" Weight: 160lbs. 0.0oz. [id number]; 28.3 BMI Method:Stated General Appearance: WD/WN, no apparent distress HEENT: PERRL/EOMI, pharynx normal Neck: non-tender, normal inspection Respiratory: chest non-tender, no respiratory distress, no accessory muscle use Cardiovascular: normal peripheral pulses, regular rate, rhythm Gastrointestinal: normal bowel sounds, soft, tenderness (all 4 quadrants. Tenderness over McBurney's point but without rebound tenderness. Negative for Rovsing, psoas or other mesenteric signs.) Genital/Rectal: normal genital exam, normal vaginal exam, other (non-speculum exam external genitalia unremarkable. There is some bloody thin secretions at the introitus) Neurologic/Psychiatric: alert, oriented x 3 Skin: normal color, warm/dry Progress/Results/Core Measures Results/Orders Lab Results Laboratory Tests Test 03/06/18 13:04 03/06/18 13:18 03/06/18 13:20 Range/Units White Blood Count 7.6 4.3-11.0 10^3/uL Red Blood Count 4.45 4.35-5.85 10^6/uL Hemoglobin 12.1 11.5-16.0 G/DL Hematocrit 38 35-52 % Mean Corpuscular Volume 84 80-99 FL Mean Corpuscular Hemoglobin 27 25-34 PG Mean Corpuscular Hemoglobin Concent 32 32-36 G/DL Red Cell Distribution Width 16.0 H 10.0-14.5 % Platelet Count 335 130-400 10^3/uL Mean Platelet Volume 8.6 7.4-10.4 FL Neutrophils (%) (Auto) 68 42-75 % Lymphocytes (%) (Auto) 23 12-44 % Monocytes (%) (Auto) 7 0-12 % Eosinophils (%) (Auto) 2 0-10 % Basophils (%) (Auto) 0 0-10 % Neutrophils # (Auto) 5.2 1.8-7.8 X 10^3 Lymphocytes # (Auto) 1.7 1.0-4.0 X 10^3 Monocytes # (Auto) 0.6 0.0-1.0 X 10^3 Eosinophils # (Auto) 0.1 0.0-0.3 10^3/uL Basophils # (Auto) 0.0 0.0-0.1 10^3/uL Sodium Level 138 135-145 MMOL/L Potassium Level 4.6 3.6-5.0 MMOL/L Chloride Level 104 98-107 MMOL/L Carbon Dioxide Level 25 21-32 MMOL/L Anion Gap 9 5-14 MMOL/L Blood Urea Nitrogen 10 7-18 MG/DL Creatinine 0.68 0.60-1.30 MG/DL Estimat Glomerular Filtration Rate > 60 BUN/Creatinine Ratio 15 Glucose Level 79 70-105 MG/DL Calcium Level 9.6 8.5-10.1 MG/DL Total Bilirubin 0.2 0.1-1.0 MG/DL Aspartate Amino Transf (AST/SGOT) 14 5-34 U/L Alanine Aminotransferase (ALT/SGPT) 20 0-55 U/L Alkaline Phosphatase 63 40-136 U/L Total Protein 7.3 6.4-8.2 GM/DL Albumin 4.2 3.2-4.5 GM/DL Urine Color RED H Urine Clarity CLEAR Urine pH 7 5-9 Urine Specific [place] 1.005 L 1.016-1.022 Urine Protein 3+ H NEGATIVE Urine Glucose (UA) NEGATIVE NEGATIVE Urine Ketones NEGATIVE NEGATIVE Urine Nitrite NEGATIVE NEGATIVE Urine Bilirubin NEGATIVE NEGATIVE Urine Urobilinogen NORMAL NORMAL MG/DL Urine Leukocyte Esterase 3+ H NEGATIVE Urine RBC (Auto) 5+ H NEGATIVE Urine RBC >100 H /HPF Urine WBC 50-100 H /HPF Urine Squamous Epithelial Cells 5-10 /HPF Urine Crystals NONE /LPF Urine Bacteria TRACE /HPF Urine Casts NONE /LPF Urine Mucus NEGATIVE /LPF Urine Trichomonas FEW H /HPF Urine Culture Indicated YES Urine Opiates Screen NEGATIVE NEGATIVE Urine Oxycodone Screen NEGATIVE NEGATIVE Urine Methadone Screen NEGATIVE NEGATIVE Urine Propoxyphene Screen NEGATIVE NEGATIVE Urine Barbiturates Screen NEGATIVE NEGATIVE Ur Tricyclic Antidepressants Screen NEGATIVE NEGATIVE Urine Phencyclidine Screen NEGATIVE NEGATIVE Urine Amphetamines Screen NEGATIVE NEGATIVE Urine Methamphetamines Screen NEGATIVE NEGATIVE Urine Benzodiazepines Screen NEGATIVE NEGATIVE Urine Cocaine Screen NEGATIVE NEGATIVE Urine Cannabinoids Screen POSITIVE H NEGATIVE Micro Results Microbiology 03/06/18 Wet Prep - Final, Complete My Orders Orders - MARII PATEL Ua Culture If Indicated (03/06/18 12:32) Urine Bedside (03/06/18 12:32) Drug Screen Stat (Urine) (03/06/18 12:32) Cbc With Automated Diff (03/06/18 12:45) Comprehensive Metabolic Panel (03/06/18 12:45) Abdomen/Kub 1[place] (03/06/18 12:45) Neisseria Gonorrhea Swab (03/06/18 12:45) Chlam Dna Probe (03/06/18 12:45) Wet Prep (03/06/18 12:45) Urine Culture (03/06/18 13:18) Ceftriaxone Injection (Rocephin Injectio (03/06/18 14:00) Lidocaine 1% Inj 20 Ml (Xylocaine 1% Inj (03/06/18 14:00) Azithromycin Tablet (Zithromax Tablet) (03/06/18 14:00) Metronidazole Tablet (Flagyl Tablet) (03/06/18 14:00) Medications Given in ED Current Medications Medications Dose Ordered Sig/Charity Route Start Time Stop Time Status Last Admin Dose Admin Azithromycin 1,000 mg ONCE ONCE PO 03/06/18 14:00 03/06/18 14:01 DC 03/06/18 14:27 1,000 MG Ceftriaxone Sodium 250 mg ONCE ONCE IM 03/06/18 14:00 03/06/18 14:01 DC 03/06/18 14:27 250 MG Lidocaine HCl 0.9 ml ONCE ONCE INJ 03/06/18 14:00 03/06/18 14:01 DC 03/06/18 14:27 0.9 ML Metronidazole 2,000 mg ONCE ONCE PO 03/06/18 14:00 03/06/18 14:02 DC 03/06/18 14:27 2,000 MG Vital Signs/I&O 03/06/18 12:55 Temp 97.0 Pulse 97 Resp 18 B/P (MAP) 121/66 (84) Pulse Ox 99 Progress Progress Note : Time: 12:51 Progress Note Constipation versus less likely PID, appendicitis. We discussed the workup and she has elected to do some labs, a plain film abdominal x-ray, urinalysis, urine drug screen, bedside . We discussed doing STD testing and she has agreed to do this or going to do a in and out vaginal swab for wet prep and GC/Chlamydia. Diagnostic Imaging Diagonstic Imaging: Xray Plain Films/CT/US/NM/MRI: abdomen (one view KUB) Reviewed: Reviewed by Me Departure Impression Primary Impression: infection, trichomonal Disposition: 01 HOME, SELF-CARE Condition: Stable Departure-Patient Inst. Decision time for Depature: 14:32 Referrals: [facility] (PCP/Family) Primary Care Physician Patient Instructions: LOCAL PHYSICIAN LIST, Sexually-Transmitted Diseases Add. Discharge Instructions: Drink plenty of fluids. We'll call you if any of your other tests come back positive along with some appropriate antibiotics. Talk to your previous contacts about getting tested. 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 All discharge instructions reviewed with patient and/or family. Voiced understanding. Scripts No Active Prescriptions or Reported Meds Copy Copies To 1: RICARDA GODDARD TITUS J Mar 06, 2018 12:52
[2018-03-06 13:10] LABS: BASOPHILS % (AUTO) 0 % (0-10); EOSINOPHILS # (AUTO) 0.1 10^3/uL (0.0-0.3); EOSINOPHILS % (AUTO) 2 % (0-10); HEMATOCRIT 38 % (35-52); HEMOGLOBIN 12.1 G/DL (11.5-16.0); LYMPHOCYTES # (AUTO) 1.7 X 10^3 (1.0-4.0); LYMPHOCYTES % (AUTO) 23 % (12-44); MEAN CORPUSCULAR HEMOGLOBIN 27 PG (25-34); MEAN CORPUSCULAR HGB CONC 32 G/DL (32-36); MEAN CORPUSCULAR VOLUME 84 FL (80-99); MEAN PLATELET VOLUME 8.6 FL (7.4-10.4); MONOCYTES # (AUTO) 0.6 X 10^3 (0.0-1.0); MONOCYTES % (AUTO) 7 % (0-12); NEUTROPHILS # (AUTO) 5.2 X 10^3 (1.8-7.8); NEUTROPHILS % (AUTO) 68 % (42-75); PLATELET COUNT 335 10^3/uL (130-400); RED BLOOD COUNT 4.45 10^6/uL (4.35-5.85); WHITE BLOOD COUNT 7.6 10^3/uL (4.3-11.0)
[2018-03-06 13:27] LABS: BILIRUBIN,URINE NEGATIVE (NEGATIVE); CLARITY,URINE CLEAR; COLOR,URINE RED; GLUCOSE, URINE (UA) NEGATIVE (NEGATIVE); KETONES,URINE NEGATIVE (NEGATIVE); LEUKOCYTE ESTERASE ,URINE 3+ (NEGATIVE); NITRITE,URINE NEGATIVE (NEGATIVE); PH,URINE 7 (5-9); PROTEIN,URINE 3+ (NEGATIVE); UROBILINOGEN,URINE NORMAL (NORMAL)
[2018-03-06 13:30] LABS: ALANINE AMINOTRANSFERASE 20 U/L (0-55); ALBUMIN 4.2 GM/DL (3.2-4.5); ALKALINE PHOSPHATASE 63 U/L (40-136); BILIRUBIN,TOTAL 0.2 MG/DL (0.1-1.0); BUN/CREATININE RATIO 15; CALCIUM 9.6 MG/DL (8.5-10.1); CARBON DIOXIDE 25 MMOL/L (21-32); CHLORIDE 104 MMOL/L (98-107); CREATININE SERUM 0.68 MG/DL (0.60-1.30); GFR ESTIMATED > 60; GLUCOSE 79 MG/DL (70-105); POTASSIUM 4.6 MMOL/L (3.6-5.0); SODIUM 138 MMOL/L (135-145); TOTAL PROTEIN 7.3 GM/DL (6.4-8.2)
--- NOTE | 2018-03-06 13:43 | Diagnostic Imaging Report ---
Indication: Constipation for 3 days. A supine view of the abdomen shows the bowel gas pattern to be within normal limits. No mass or calculus is seen. There is no bony abnormality. Impression: Normal abdomen. Dictated by: Dictated on workstation # [id number]
[2018-03-06 13:45] LABS: AMPHETAMINE SCREEN, URINE NEGATIVE (NEGATIVE); BARBITURATE SCREEN URINE NEGATIVE (NEGATIVE); BENZODIAZEPINES SCREEN URINE NEGATIVE (NEGATIVE); CANNABINOID SCREEN, URINE POSITIVE (NEGATIVE); COCAINE SCREEN URINE NEGATIVE (NEGATIVE); METHADONE STAT NEGATIVE (NEGATIVE); METHAMPHETAMINE SCREEN URINE S NEGATIVE (NEGATIVE); OPIATE SCREEN URINE NEGATIVE (NEGATIVE); OXYCODONE STAT NEGATIVE (NEGATIVE); PROPOXYPHENE STAT NEGATIVE (NEGATIVE); TRICYCLIC ANTIDEPRESSANTS SCRE NEGATIVE (NEGATIVE)
[2018-03-06 13:46] LABS: BACTERIA,URINE TRACE /HPF; RBC,URINE >100 /HPF; TRICHOMONAS,URINE FEW /HPF; WBC,URINE 50-100 /HPF
[2018-03-06] MEDS ORDERED: LIDOCAINE 1% INJ 20 ML 20 ML VIAL INJ ONE (14:00)
[2018-03-06] MEDS ORDERED: cefTRIAXone 250 MG (ROCEPHIN) VIAL IM ONE (14:00)
[2018-03-06] MEDS ORDERED: AZITHROMYCIN 250 MG TAB (ZITHROMAX) PO ONE (14:00)
[2018-03-06] MEDS ORDERED: metroNIDAZOLE 500 MG (FLAGYL) TAB PO ONE (14:00)
[2018-03-06 14:49] VITALS: BP 121/66
== END 2018-03-06 14:48 | disposition home or self-care (01) ==
LOC: EDUNIT# 12:31 → ER 12:33
DX: A07.8 Other specified protozoal intestinal diseases (principal); J45.909 Unspecified asthma, uncomplicated; Z87.19 Personal history of other diseases of the digestive system; Z88.0 Allergy status to penicillin; Z87.891 Personal history of nicotine dependence
CPT/HCPCS: 36415; 74018; 80053; 80306; 81000; 85025; 87088; 87186; 87210; 87491; 87591; 96372

== ENCOUNTER 2018-04-03 12:36 | Emergency (ER) | payer OTHER, MEDICAID ==
[~2018-04-03] VITALS: Ht 160 cm; Wt 72.1 kg
[~2018-04-03 12:36] MED LIST changes: +CEPH-507 PO; +HYDR-4226 PO; -HYDR-757 PO
--- OUTSIDE RECORDS SUMMARY | 2018-04-03 12:40 | XMS REPORT | Clinical Summary ---
Demographics Preferred Language Unknown Marital Status Unknown Yazidi Affiliation Unknown Race Unknown Ethnic Group Unknown Author Author [facility] Organization [facility] Address Unknown Phone Unavailable Care Team Providers Care Project Management Analyst Name Role Phone PP Unavailable Allergies Not on File Current Medications Not on file Active Problems Not on file Social History Tobacco Use Types Packs/Day Years Used Date Never Assessed Sex Assigned at Date Recorded Not on file Plan of Treatment Health Maintenance Due Date Last Done Comments HPV Vaccines (1 of 3 - 2008 Female 3-dose series) Varicella Vaccines (1 of 2010 2 - 2-dose adolescent series) MenB Vaccine (Bexsero) (1 2013 of 2) DTaP,Tdap,and Td Vaccines 2016 (1 - Tdap) Results Not on filefrom Last 3 Months
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
[2018-04-03 13:09] VITALS: BP 106/64
== END 2018-04-03 13:12 | disposition home or self-care (01) ==
LOC: EDUNIT# 12:36 → ER 12:36
DX: S61.511D Laceration without foreign body of right wrist, subsequent encounter (principal); X58.XXXD Exposure to other specified factors, subsequent encounter

== ENCOUNTER 2018-08-13 16:30 | Emergency (ER) | payer MEDICAID, OTHER ==
[~2018-08-13] VITALS: Ht 160 cm; Wt 72.6 kg
--- OUTSIDE RECORDS SUMMARY | 2018-08-13 16:42 | XMS REPORT | Clinical Summary ---
Demographics Preferred Language Unknown Marital Status Unknown Pentecostalism Affiliation Unknown Race Unknown Ethnic Group Unknown Author Author [facility] Address Unknown Phone Unavailable Care Team Providers Care News Production Assistant Name Role Phone PP Unavailable Allergies Not on File Current Medications Not on file Active Problems Not on file Social History Tobacco Use Types Packs/Day Years Used Date Never Assessed Sex Assigned at Date Recorded Not on file Plan of Treatment Health Maintenance Due Date Last Done Comments HPV Vaccines (1 - Female 2008 3-dose series) Varicella Vaccines (1 of 2010 2 - 2-dose adolescent series) MenB Vaccine (Bexsero) (1 2013 of 2) DTaP,Tdap,and Td Vaccines 2016 (1 - Tdap) Influenza Vaccine (#1) 2018 Results Not on filefrom Last 3 Months
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
[2018-08-13] MEDS ORDERED: SULF1TAB35 PO (16:48)
--- NOTE | 2018-08-13 16:48 | ED Upper Extremity ---
General Chief Complaint: Upper Extremity Stated Complaint: FINGER SWOLLEN AND RED Source: patient Exam Limitations: no limitations History of Present Illness Date Seen by Provider: Aug 13, 2018 Time Seen by Provider: 16:43 Initial Comments Patient is 22-year-old female who presents to the emergency room with complaints of swelling and redness to the palmar surface of her left index finger. She reports that 3 days ago she was applying artificial nails with superglue and got some of the nail glue on her finger and it caused irritation and redness initially. Today the swelling and redness has become worse. She denies fevers. Onset: other (3 days) Pain/Injury Location: left 2nd finger Method of Injury: unknown Allergies and Home Medications Allergies Coded Allergies: Penicillins (Unverified Allergy, Mild, 12/19/17) Home Medications Cephalexin 500 Mg Capsule, 500 MG PO TID Prescribed by: LORE GARCIA on 03/27/18 3118 Patient Home Medication List Home Medication List Reviewed: Yes Review of Systems Constitutional: no symptoms reported, see HPI Skin: see HPI, change in color (redness and swelling to the palmar surface of the left index finger.) All Other Systems Reviewed Negative Unless Noted: Yes Past Rhojkzf-Yirdmh-Qhmbkc Hx Past Med/Social Hx: Reviewed Nursing Past Med/Soc Hx Patient Social History Alcohol Use: Denies Use Recreational Drug Use: No Smoking Status: Current Everyday Smoker Type Used: Cigarettes Former Smoker, Quit: December 23, 2017 2nd Hand Smoke Exposure: No Recent Foreign Travel: No Contact w/Someone Who Travel: No Recent Hopitalizations: No Immunizations Up To Date Tetanus Booster (TDap): Less than 5yrs PED Vaccines UTD: Yes Date of Influenza Vaccine: Jun 24, 2016 Seasonal Allergies Seasonal Allergies: Yes Past Medical History Surgeries: Yes (BMT'S ) Ear Surgery Respiratory: Yes Asthma Cardiac: No Neurological: No Reproductive Disorders: No Female Reproductive Disorders: Denies Sexually Transmitted Disease: No HIV/AIDS: No Genitourinary: No Gastrointestinal: Yes Colitis Musculoskeletal: No Endocrine: No HEENT: Yes (BMT'S INFANT) Chronic Ear Infection Cancer: No Psychosocial: No Integumentary: No Blood Disorders: No Adverse Reaction/Blood Tranf: No Family Medical History Reviewed Nursing Family Hx Patient reports no known family medical history. Physical Exam Vital Signs Capillary Refill : Height, Weight, BMI Height: 5'3.00" Weight: 159lbs. 0.0oz. 72.972125pc; 28.12 BMI Method:Stated General Appearance: WD/WN, no apparent distress Cardiovascular: normal peripheral pulses, regular rate, rhythm, no edema, no gallop, no JVD, no murmur Respiratory: chest non-tender, lungs clear, normal breath sounds, no respiratory distress, no accessory muscle use Hand: Left, infection (redness and swelling to the palmar surface of the left index finger. See images.) Neurologic/Psychiatric: alert, normal mood/affect, oriented x 3 Skin: normal color, warm/dry Procedures/Interventions Suture Size: 4-0 Progress/Results/Core Measures Progress Progress Note : Time: 16:47 Progress Note I have seen and evaluated the patient. There is no area of fluctuation to suggest an abscess. I have informed the patient of plans of care, plans for discharge, return precautions were given. Departure Impression Primary Impression: Cellulitis of finger of left hand Disposition: 01 HOME, SELF-CARE Condition: Stable/Unchanged Departure-Patient Inst. Decision time for Depature: 16:47 Referrals: [facility] (PCP/Family) Primary Care Physician Patient Instructions: Cellulitis (Skin Infection), Adult (DC) Add. Discharge Instructions: Take medications as directed. You may use ice to the sore areas to help with inflammation. Ibuprofen and Tylenol for pain control. Return back to the emergency room for worsening symptoms or concerns as needed. Follow-up with your doctor as needed. All discharge instructions reviewed with patient and/or family. Voiced understanding. Scripts Sulfamethoxazole/Trimethoprim (Bactrim Ds Tablet) 1 Each Tablet 1 EACH PO BID for 7 Days, #14 TAB Prov: IVONE FALK 08/13/18 Images Extremities-Upper 1 - Cellulitis IVONE FALK Aug 13, 2018 16:48
[2018-08-13 16:55] VITALS: BP 118/66
[2018-08-14] MEDS ORDERED: HYDR-4226 PO (19:05)
== END 2018-08-13 17:05 | disposition home or self-care (01) ==
LOC: EDUNIT# 16:30 → ER 16:32
DX: L03.012 Cellulitis of left finger (principal); J45.909 Unspecified asthma, uncomplicated; Z88.0 Allergy status to penicillin; Z87.891 Personal history of nicotine dependence; Z87.19 Personal history of other diseases of the digestive system
CPT/HCPCS: 99282

== ENCOUNTER 2018-08-14 18:19 | Emergency (ER) | payer MEDICAID ==
[~2018-08-14] VITALS: Ht 160 cm; Wt 72.6 kg
[2018-08-14] MEDS ORDERED: LIDOCAINE 1% INJ 20 ML 20 ML VIAL ONE (18:42)
[2018-08-14] MEDS ORDERED: RX-HYDROCODONE/APAP 5/325 MG #4 TAB PK PO PRN (18:45)
[2018-08-14] MEDS ORDERED: BUPIVACAINE 0.5% 30 ML (SENSORCAINE) VIAL INJ ONE (18:45)
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
[2018-08-14] MEDS: LIDOCAINE 2% 20 ML (XYLOCAINE) VIAL INJ ONE ×2 (18:48→18:49)
[2018-08-14] MEDS ORDERED: HYDR-4226 PO (19:05)
[2018-08-14 19:09] VITALS: BP 108/52
== END 2018-08-14 19:09 | disposition home or self-care (01) ==
LOC: EDUNIT# 18:19 → ER 18:20
DX: L03.012 Cellulitis of left finger (principal); J45.909 Unspecified asthma, uncomplicated; Z87.19 Personal history of other diseases of the digestive system; Z88.0 Allergy status to penicillin; Z87.891 Personal history of nicotine dependence
CPT/HCPCS: 64450; 87070; 87077; 87186; 87205

== ENCOUNTER 2020-04-27 00:28 | Emergency (ER) | payer MEDICAID ==
[~2020-04-27] VITALS: Ht 157 cm; Wt 83.0 kg
[2020-04-27 00:41] VITALS: BP 128/80
--- NOTE | 2020-04-27 00:51 | ED Lower Extremity ---
General Chief Complaint: Lower Extremity Stated Complaint: RT ANKLE PAIN Nursing Triage Note: Patient was jumping on a trampoline when she states she "fell through it" and landed on her foot. Onset 2 hours ago. Nursing Sepsis Screen: No Definite Risk Exam Limitations: no limitations History of Present Illness Date Seen by Provider: Apr 27, 2020 Time Seen by Provider: 00:37 Initial Comments Patient presents to the ER by private conveyance from home with chief complaint that about 2 hours prior to arrival she was jumping on a trampoline and her foot went through a hole in the trampoline causing some abrasions of bilateral knees. She inverted her right ankle and is now having some swelling bilaterally and pain. She was not able to immediately put any weight on it. She is not able to put any weight on it now because of pain. No previous injury or surgery to the ankle. No numbness or tingling. The patient has been using ice and elevation for swelling and pain. Allergies and Home Medications Allergies Coded Allergies: Penicillins (Unverified Allergy, Mild, 12/19/17) Home Medications Cephalexin 500 Mg Capsule, 500 MG PO TID Prescribed by: LORE GARCIA on 03/27/18 1634 Hydrocodone/Acetaminophen 1 Each Tablet, 1 EACH PO Q6H PRN for PAIN-MODERATE Prescribed by: LORE GARCIA on 08/14/18 1905 Sulfamethoxazole/Trimethoprim 1 Each Tablet, 1 EACH PO BID Prescribed by: IVONE FALK on 08/13/18 1648 Patient Home Medication List Home Medication List Reviewed: Yes Review of Systems Constitutional: No chills, No fever EENTM: No ear discharge, No ear pain Respiratory: No cough, No dyspnea on exertion Cardiovascular: No chest pain, No palpitations Gastrointestinal: No abdominal pain, No nausea All Other Systems Reviewed Negative Unless Noted: Yes Past Kixtcng-Ksbjol-Txonyt Hx Patient Social History Alcohol Use: Denies Use Recreational Drug Use: No Smoking Status: Current Everyday Smoker Type Used: Cigarettes Former Smoker, Quit: December 23, 2017 2nd Hand Smoke Exposure: No Recent Foreign Travel: No Contact w/Someone Who Travel: No Recent Infectious Disease Expo: No Recent Hopitalizations: No Immunizations Up To Date Tetanus Booster (TDap): Less than 5yrs PED Vaccines UTD: Yes Date of Influenza Vaccine: Jun 24, 2016 Seasonal Allergies Seasonal Allergies: Yes Past Medical History Surgeries: Yes (BMT'S INFANT) Ear Surgery Respiratory: Yes Asthma Cardiac: No Neurological: No Reproductive Disorders: No Female Reproductive Disorders: Denies Sexually Transmitted Disease: No HIV/AIDS: No Genitourinary: No Gastrointestinal: Yes Colitis Musculoskeletal: No Endocrine: No HEENT: Yes (BMT'S ) Chronic Ear Infection Cancer: No Psychosocial: No Integumentary: No Blood Disorders: No Adverse Reaction/Blood Tranf: No Family Medical History Patient reports no known family medical history. Physical Exam Vital Signs Vital Signs - First Documented 04/27/20 00:41 Temp 36.1 Pulse 91 Resp 18 B/P (MAP) 128/80 (96) Pulse Ox 99 O2 Delivery Room Air Capillary Refill : Less Than 3 Seconds Height, Weight, BMI Height: 5'3.00" Weight: 160lbs. 0.0oz. 72.658888vh; 33.00 BMI Method:Stated General Appearance: WD/WN, mild distress HEENT: PERRL/EOMI, pharynx normal Cardiovascular: normal peripheral pulses, regular rate, rhythm Respiratory: no respiratory distress, no accessory muscle use Ankles: left ankle non-tender, left ankle normal inspection, left ankle normal range of motion; right ankle bone tenderness (bilateral posterior malleolar tenderness to palpation), right ankle joint effusion (mild to moderate), right ankle pain, right ankle soft tissue tenderness, right ankle swelling (moderate) Feet: bilateral foot non-tender, bilateral foot normal inspection, bilateral foot normal range of motion, bilateral foot no evidence of injury Neurologic/Tendon: normal sensation, normal motor functions, normal tendon functions, responds to pain Neurologic/Psychiatric: alert, normal mood/affect Skin: warm/dry, ecchymosis Procedures/Interventions Suture Size: 4-0 Progress/Results/Core Measures Results/Orders My Orders Orders - MARII PATEL Ankle, Right, 3 Views (04/27/20 00:45) Vital Signs/I&O 04/27/20 00:41 Temp 36.1 Pulse 91 Resp 18 B/P (MAP) 128/80 (96) Pulse Ox 99 O2 Delivery Room Air Blood Pressure Mean: 96 Progress Progress Note #1: Time: 00:48 Progress Note Barrow ankle rules indicate x-ray of the right ankle. Progress Note #2: Time: 01:41 Progress Note Ariel bandage applied. Patient already has a set of crutches at home she can use. Diagnostic Imaging Diagonstic Imaging: Xray Plain Films/CT/US/NM/MRI: ankle (right) Comments No acute osseous abnormalities of the right ankle 3 views. Joint space are maintained. No significant ligamentous injury appreciable Reviewed: Reviewed by Me Departure Impression Primary Impression: Moderate right ankle sprain Qualified Codes: S93.401A - Sprain of unspecified ligament of right ankle, initial encounter Disposition: HOME, SELF-CARE Condition: Stable Departure-Patient Inst. Decision time for Depature: 01:26 Referrals: [facility] (PCP/Family) Primary Care Physician Patient Instructions: Ankle Sprain (DC) Add. Discharge Instructions: Rest your ankle when necessary. You may use crutches and a horseshoe splint if you need to for the next 1-2 weeks. Ice applied for 20 minutes every 2 hours for the first 2 days. Elevate her ankle above the level of your heart when possible. Compress your ankle with an elastic bandage such as an Ariel wrap. Tylenol 1000 mg every 8 hours as necessary for pain and swelling. Ibuprofen 800 mg every 8 hours as necessary first pain and swelling. All discharge instructions reviewed with patient and/or family. Voiced understanding. MARII PATEL Apr 27, 2020 00:51
--- NOTE | 2020-04-27 01:01 | NUR ---
Pt has swelling to her right ankle. Ice cassia applied. PMS intact.
--- NOTE | 2020-04-27 01:16 | NUR ---
Pt to and back from x-ray by w/c.
--- NOTE | 2020-04-27 07:37 | Diagnostic Imaging Report ---
INDICATION: Ankle pain after injury jumping on trampoline TECHNIQUE: Three views of the right ankle CORRELATION STUDY: None FINDINGS: The bony alignment is anatomic. The talar dome is intact. The ankle mortise is maintained. There is no acute fracture or dislocation. Rather pronounced soft tissue swelling is present. IMPRESSION: Negative for acute bony abnormality of the ankle. Extensive soft tissue edema. Dictated by: Dictated on workstation # [id number]
== END 2020-04-27 01:43 | disposition home or self-care (01) ==
LOC: EDUNIT# 00:28 → ER 00:32
DX: S93.491A Sprain of other ligament of right ankle, initial encounter (principal); S80.212A Abrasion, left knee, initial encounter; S80.211A Abrasion, right knee, initial encounter; F17.210 Nicotine dependence, cigarettes, uncomplicated; Z88.0 Allergy status to penicillin; Y93.44 Activity, trampolining
CPT/HCPCS: 73610

== ENCOUNTER 2021-06-28 13:54 | Emergency (ER) | payer MEDICAID ==
[~2021-06-28] VITALS: Ht 157.5 cm; Wt 93.0 kg
[~2021-06-28 13:54] MED LIST changes: +CLIN-144 PO; -CLIN300C11 PO; -SULF1TAB35 PO; +SULF1TAB38 PO
[2021-06-28] MEDS ORDERED: LIDOCAINE 1% INJ 20 ML 20 ML VIAL INJ ONE (14:15)
--- NOTE | 2021-06-28 14:16 | ED EENT ---
History of Present Illness General Chief Complaint: Eye Problems Stated Complaint: RIGHT EYELID INJURY Nursing Triage Note: Pt arrives via POV from home with c/o right eye lid laceration. Pt reports she was standing up after picking an object off of the floor et she caught her right eyelid on a screw. Pt unsure if the screw scraped eye eyeball or not; denies changes in vision. Pt unsure of last tetanus vaccine. Source: patient Exam Limitations: no limitations (LORE GARCIA APRN) History of Present Illness Date Seen by Provider: Jun 28, 2021 Time Seen by Provider: 14:15 Initial Comments to ER with laceration to the eyelid on the left side. This to the upper ey elid. She did not have the significant pain upon standing, the eyelid on an exposed nail.She denies any vision troubles Timing/Duration: abrupt Severity: moderate Location: eye (L) Associated Symptoms: denies symptoms (LORE GARCIA APRN) Allergies and Home Medications Allergies Coded Allergies: Penicillins (Unverified Allergy, Mild, 12/19/17) Patient Home Medication List Home Medication List Reviewed: Yes (LORE GARCIA APRN) Cephalexin (Keflex) 500 Mg Capsule, 500 MG PO TID Prescribed by: LORE GARCIA on 03/27/18 1634 Hydrocodone/Acetaminophen (Hydrocodone/Acetaminophen 5 MG/325 MG TAB) 1 Each Tablet, 1 EACH PO Q6H PRN for PAIN-MODERATE Prescribed by: LORE GARCIA on 08/14/18 1905 Hydrocodone/Acetaminophen (Hydrocodone-Acetamin 5-325 mg) 1 Each Tablet, 1 TAB PO Q4H PRN for PAIN-MODERATE (5-7) Prescribed by: LORE GARCIA on 06/28/21 1456 Sulfamethoxazole/Trimethoprim (Bactrim Ds Tablet) 1 Each Tablet, 1 EACH PO BID Prescribed by: IVONE FALK on 08/13/18 1648 Review of Systems Review of Systems Constitutional: see HPI Eyes: See HPI Ears: No Symptoms Reported Nose: no symptoms reported Mouth: no symptoms reported Throat: no symptoms reported Respiratory: no symptoms reported Cardiovascular: no symptoms reported Musculoskeletal: no symptoms reported (LORE GARCIA APRN) Past Pfqortq-Ciaxmr-Gurcqp Hx Patient Social History Tobacco Use?: Yes Tobacco type used: Cigarettes Smoking Status: Current Everyday Smoker Smokeless Tobacco Frequency: Current Everyday User Use of E-Cig and/or Vaping dev: Yes E-Cig or Vaping type used: Nicotine Use of E-Cig and/or Vaping Johnathan: Current Everyday User Substance use?: No Alcohol Use?: No Pt feels they are or have been: No (LORE GARCIA APRN) Immunizations Up To Date Tetanus Booster (TDap): Less than 5yrs PED Vaccines UTD: Yes Influenza Vaccine Up-to-Date: No; Not Current (LORE GARCIA APRN) Seasonal Allergies Seasonal Allergies: Yes (LORE GARCIA APRN) Past Medical History Surgeries: Yes (BMT'S ) Ear Surgery Respiratory: Yes Asthma Cardiac: No Neurological: No Reproductive Disorders: No Female Reproductive Disorders: Denies Sexually Transmitted Disease: No HIV/AIDS: No Genitourinary: No Gastrointestinal: Yes Colitis Musculoskeletal: No Endocrine: No HEENT: Yes (BMT'S INFANT) Chronic Ear Infection Cancer: No Psychosocial: No Integumentary: No Blood Disorders: No Adverse Reaction/Blood Tranf: No (LORE GARCIA APRN) Family Medical History Patient reports no known family medical history. Physical Exam Vital Signs Vital Signs - First Documented 06/28/21 14:00 Temp 36.8 Pulse 95 Resp 18 B/P (MAP) 134/78 (96) Pulse Ox 98 O2 Delivery Room Air (PEDRO YEH MD) Height, Weight, BMI Height: 5'3.00" Weight: 160lbs. 0.0oz. 72.905360id; 37.00 BMI Method:Stated General Appearance: WD/WN, no apparent distress Eyes: left eye other (The left upper eyelid does have about 1/2 cm laceration. This does involve the lid margin, the mucocutaneous junction. For this reason I did consult with Dr. Cobb from ophthalmology at [facility]. He recommends suturing this here in ER and He can follow-up with her in the clinic.); bilateral eye PERRL, bilateral eye EOMI Neck: non-tender, full range of motion Respiratory: no respiratory distress, no accessory muscle use Gastrointestinal: normal bowel sounds, non tender, soft Neurologic/Psychiatric: alert, normal mood/affect, oriented x 3 Skin: normal color, warm/dry (LORE GARCIA APRN) Procedures/Interventions Suture Size: 4-0 (LORE GARCIA APRN) Progress/Results/Core Measures Results/Orders Medications Given in ED Current Medications Medications Dose Ordered Sig/Charity Route Start Time Stop Time Status Last Admin Dose Admin Balanced Salt Solution 15 ml ONCE ONCE IR 06/28/21 14:30 06/28/21 14:31 DC 06/28/21 14:33 15 ML Diphtheria/ Tetanus/Acell Pertussis 0.5 ml ONCE ONCE IM 06/28/21 14:30 06/28/21 14:31 DC 06/28/21 14:45 0.5 ML Fluorescein Sodium 1 mg ONCE ONCE OU 06/28/21 14:30 06/28/21 14:31 DC 06/28/21 14:33 1 MG Lidocaine HCl 1 ml ONCE ONCE INJ 06/28/21 14:15 06/28/21 14:16 DC 06/28/21 14:18 1 ML Tetracaine HCl 4 ml ONCE ONCE OU 06/28/21 14:30 06/28/21 14:31 DC 06/28/21 14:34 4 ML (PEDRO YEH MD) Vital Signs/I&O 06/28/21 06/28/21 14:00 15:10 Temp 36.8 36.8 Pulse 95 95 Resp 18 18 B/P (MAP) 134/78 (96) 134/78 Pulse Ox 98 98 O2 Delivery Room Air Room Air (PEDRO YEH MD) Blood Pressure Mean: 96 Departure Communication (Admissions) 1453- did in a supraorbital nerve block using 1 mL of 1% lidocaine without epinephrine. Then did some additional local anesthesia totaling about 0.25 mL of 1% lidocaine without epinephrine. We also did some topical tetracaine to the globe. We then did fluorescein staining and there was no corneal abrasion. The 0.5 to 1 cm laceration is through and through involving the lid margin. Again I did speak with ophthalmology Dr. Zahira Calvin about whether he should repair this or I should repair this in the ER. He will follow up with the patient next week in his clinic after we sutured this here in the ER. The laceration does affect the conjunctival surface of the upper lid though it is medial to the lacrimal gland and there is no injury to the nasolacrimal duct or the bottom lid at any part. This does affect the lid margin. That was reapproximated with 4 simple interrupted sutures size 6-0 Prolene. The conjunctival surface was of course not sutured. (LORE GARCIA APRN) Impression Primary Impression: Eyelid laceration Disposition: 01 HOME, SELF-CARE Condition: Stable Departure-Patient Inst. Decision time for Depature: 14:53 (LORE GARCIA APRN) Referrals: [facility] (PCP/Family) Primary Care Physician Patient Instructions: Laceration Repair With Stitches (DC) Add. Discharge Instructions: 1. Cool compresses to the area will help reduce swelling. You can shower letting water run over this starting this evening. Return to ER for any concerns. Antibiotic drops as directed. Pain medication as needed. Follow-up with Dr. Rodriges from ophthalmology at [facility] on Wednesday. Call his office for an appointment time. Dr Rodriges Address: [address] [place] [address] All discharge instructions reviewed with patient and/or family. Voiced understanding. Scripts Hydrocodone/Acetaminophen (Hydrocodone-Acetamin 5-325 mg) 1 Each Tablet 1 TAB PO Q4H PRN for PAIN-MODERATE (5-7), #10 TAB Prov: LORE GARCIA APRN 06/28/21 ATTENDING PHYSICIAN NOTE: I was physically present as attending physician in the emergency department during the care of this patient, but I was not directly involved in the decision making or delivery of care for this patient. (PEDRO YEH MD) LORE GARCIA APRN Jun 28, 2021 14:16 PEDRO YEH MD Jun 28, 2021 20:21
[2021-06-28] MEDS ORDERED: BSS 15 ML IR ONE (14:30)
[2021-06-28] MEDS ORDERED: TETANUS,DIPTH,PERTUSS P/F (BOOSTRIX) 0.5 ML VIAL IM ONE (14:30)
[2021-06-28] MEDS ORDERED: TETRACAINE 0.5% OPHTH SOLN 4 ML BTL (SINGLE DOSE ONLY) OU ONE (14:30)
[2021-06-28] MEDS ORDERED: FLUORESCEIN (FLUOR-I-STRIPS) 1 MG STRP OU ONE (14:30)
[2021-06-28] MEDS ORDERED: ACHD5005 PO (14:55)
[2021-06-28] MEDS ORDERED: CIPROFLOXACIN 0.3% (CILOXAN) 2.5 ML BTL OP SCH (15:00)
[2021-06-28 15:10] VITALS: BP 134/78
[2021-06-28] MEDS ORDERED: GENTAMICIN 0.3% OPHTH SOLN 5 ML OP SCH (15:15)
== END 2021-06-28 15:10 | disposition home or self-care (01) ==
LOC: EDUNIT# 13:54 → ER 13:56
DX: S01.112A Laceration without foreign body of left eyelid and periocular area, initial encounter (principal); J45.909 Unspecified asthma, uncomplicated; F17.210 Nicotine dependence, cigarettes, uncomplicated; Z23 Encounter for immunization; X58.XXXA Exposure to other specified factors, initial encounter
CPT/HCPCS: 12051; 90715

== ENCOUNTER 2021-07-16 13:10 | Emergency (ER) | payer MEDICAID ==
[~2021-07-16 13:10] MED LIST changes: +ACHD5005 PO
[2021-07-16 13:24] VITALS: BP 125/85
== END 2021-07-16 13:24 | disposition home or self-care (01) ==
LOC: EDUNIT# 13:10 → ER 13:12
DX: Z48.02 Encounter for removal of sutures (principal)

== ENCOUNTER 2022-02-17 08:06 | Emergency (ER) | payer MEDICAID ==
[~2022-02-17] VITALS: Ht 157.4 cm; Wt 89.3 kg
[2022-02-17] MEDS ORDERED: ACETAMINOPHEN 500 MG TAB (TYLENOL) PO STA (08:22)
--- NOTE | 2022-02-17 08:29 | ED Lower Extremity ---
General Stated Complaint: R FOOT PAIN Source: patient Exam Limitations: no limitations History of Present Illness Date Seen by Provider: Feb 17, 2022 Time Seen by Provider: 08:18 Initial Comments Here with report of right ankle pain after rolling it while walking yesterday. She was able to walk down today. Denies other injury or concerns. States that stiff and painful especially at the lateral malleolus. Onset: yesterday Severity: mild Pain/Injury Location: right ankle Method of Injury: twisted Modifying Factors: Improves With Immobilization; Worse With Movement; Improves With Rest Allergies and Home Medications Allergies Coded Allergies: Penicillins (Unverified Allergy, Mild, 12/19/17) Patient Home Medication List Home Medication List Reviewed: Yes Cephalexin (Keflex) 500 Mg Capsule, 500 MG PO TID Prescribed by: LORE GARCIA on 03/27/18 1634 Hydrocodone/Acetaminophen (Hydrocodone/Acetaminophen 5 MG/325 MG TAB) 1 Each Tablet, 1 EACH PO Q6H PRN for PAIN-MODERATE Prescribed by: LORE GARCIA on 08/14/18 1905 Hydrocodone/Acetaminophen (Hydrocodone-Acetamin 5-325 mg) 1 Each Tablet, 1 TAB PO Q4H PRN for PAIN-MODERATE (5-7) Prescribed by: LORE GARCIA on 06/28/21 1456 Sulfamethoxazole/Trimethoprim (Bactrim Ds Tablet) 1 Each Tablet, 1 EACH PO BID Prescribed by: IVONE FALK on 08/13/18 1648 Review of Systems Constitutional: No chills, No fever Respiratory: no symptoms reported Cardiovascular: no symptoms reported Musculoskeletal: joint pain, joint swelling Skin: No change in color, No lesions Past Yuxhlik-Vponxk-Kyuytr Hx Patient Social History Tobacco Use?: Yes Tobacco type used: Cigarettes Smoking Status: Current Everyday Smoker Immunizations Up To Date Tetanus Booster (TDap): Less than 5yrs PED Vaccines UTD: Yes Seasonal Allergies Seasonal Allergies: Yes Past Medical History Surgeries: Yes (BMT'S ) Ear Surgery Respiratory: Yes Asthma Cardiac: No Neurological: No Reproductive Disorders: No Female Reproductive Disorders: Denies Sexually Transmitted Disease: No HIV/AIDS: No Genitourinary: No Gastrointestinal: Yes Colitis Musculoskeletal: No Endocrine: No HEENT: Yes (BMT'S INFANT) Chronic Ear Infection Cancer: No Psychosocial: No Integumentary: No Blood Disorders: No Adverse Reaction/Blood Tranf: No Family Medical History Reviewed Nursing Family Hx Patient reports no known family medical history. Physical Exam Vital Signs Vital Signs - First Documented 02/17/22 08:18 Temp 36.6 Pulse 108 Resp 16 B/P (MAP) 115/72 (86) Pulse Ox 98 O2 Delivery Room Air Capillary Refill : Height, Weight, BMI Height: 5'3.00" Weight: 160lbs. 0.0oz. 72.251790jt; 37.00 BMI Method:Stated General Appearance: WD/WN, no apparent distress Cardiovascular: regular rate, rhythm, no murmur Respiratory: lungs clear, normal breath sounds Ankles: right ankle limited range of motion, right ankle pain, right ankle soft tissue tenderness, right ankle swelling, right ankle other (Pain to the area of the lateral malleolus distally with mild swelling without discoloration) Procedures/Interventions Suture Size: 4-0 Progress/Results/Core Measures Results/Orders My Orders Orders - SHANI BELLAMY MD Acetaminophen Tablet (Tylenol Tablet) (02/17/22 08:22) Ankle, Right, 3 Views (02/17/22 08:22) Vital Signs/I&O 02/17/22 08:18 Temp 36.6 Pulse 108 Resp 16 B/P (MAP) 115/72 (86) Pulse Ox 98 O2 Delivery Room Air Progress Progress Note : Progress Note Seen and evaluated. X-ray right ankle. Acetaminophen 1 g p.o. Monitor patient. 0904: No obvious fracture. Patient tender lateral aspect but not medial. Gel splint and Ariel wrap placed. Discharged home with return precautions. Patient verbalized understanding instructions and agreement with plan. Diagnostic Imaging Diagonstic Imaging: Xray Plain Films/CT/US/NM/MRI: ankle Comments NAME: AXEL NIEVES [facility] REC#: [id number] PT STATUS: REG ER : 1995 PHYSICIAN: SHANI BELLAMY MD ADMIT DATE: 02/17/22/ER Draft Date of Exam:02/17/22 ANKLE, RIGHT, 3 VIEWS INDICATION: Pain status post injury. COMPARISON: 04/27/2020. FINDINGS: Three radiographic views of the right ankle were obtained. There is mild generalized soft tissue swelling. Linear opacity is noted projecting over the medial margins of the medial malleolus. No other acute osseous abnormality is seen. Joint spaces are maintained. No unexpected radiopaque foreign bodies are seen. IMPRESSION: 1. Linear opacity projecting over the medial margins of the medial malleolus is noted. This is an usual location for an avulsion injury but correlation with point tenderness is recommended. 2. Soft tissue swelling but no other acute osseous abnormality is seen. Dictated on workstation # [id number] Dict: 02/17/22 0857 Trans: 02/17/22 0905 [id number] Interpreted by: LAUREN ALARCON MD Electronically signed by: Reviewed: Reviewed by Me Departure Impression Primary Impression: Right ankle sprain Qualified Codes: S93.401A - Sprain of unspecified ligament of right ankle, initial encounter Disposition: HOME, SELF-CARE Condition: Stable Departure-Patient Inst. Decision time for Depature: 09:06 Referrals: [facility] (PCP/Family) Primary Care Physician Patient Instructions: Ankle Sprain ED Add. Discharge Instructions: Use Ariel wrap and ankle splint as needed over the next several days to a week to reduce pain and swelling. Ice packs to area of concern 20 minutes/h as needed to reduce swelling and pain. You may take ibuprofen 600 mg every 8 hours as needed for pain. You may take Tylenol/acetaminophen 1000 mg every 6-8 hours as needed for pain. Follow-up with your doctor in a few days for recheck. Return for worse pain, swelling, weakness or other concerns as needed. Work/School Note: Work Release Form Date Seen in the Emergency Department: Feb 17, 2022 Return to Work: Feb 19, 2022 Restrictions: No Restrictions SHANI BELLAMY MD Feb 17, 2022 08:29
--- NOTE | 2022-02-17 09:06 | Diagnostic Imaging Report ---
INDICATION: Pain status post injury. COMPARISON: 04/27/2020. FINDINGS: Three radiographic views of the right ankle were obtained. There is mild generalized soft tissue swelling. Linear opacity is noted projecting over the medial margins of the medial malleolus. No other acute osseous abnormality is seen. Joint spaces are maintained. No unexpected radiopaque foreign bodies are seen. IMPRESSION: 1. Linear opacity projecting over the medial margins of the medial malleolus is noted. This is an usual location for an avulsion injury but correlation with point tenderness is recommended. 2. Soft tissue swelling but no other acute osseous abnormality is seen. Dictated by: Dictated on workstation # [id number]
[2022-02-17 09:23] VITALS: BP 103/67
== END 2022-02-17 09:23 | disposition home or self-care (01) ==
LOC: EDUNIT# 08:06 → ER 08:07
DX: S93.401A Sprain of unspecified ligament of right ankle, initial encounter (principal); F17.210 Nicotine dependence, cigarettes, uncomplicated; Z28.310 Unvaccinated for COVID-19; X50.1XXA Overexertion from prolonged static or awkward postures, initial encounter
CPT/HCPCS: 73610; L4350

== ENCOUNTER 2022-02-20 15:44 | Emergency (ER) | payer OTHER, MEDICAID | END 2022-02-20 16:04 | disposition left against medical advice (07) | LOC: EDUNIT# 15:44 → ER 15:46 | DX: M79.671 Pain in right foot (principal) ==

== ENCOUNTER 2022-03-03 12:55 | Emergency (ER) | payer MEDICAID ==
[~2022-03-03] VITALS: Ht 157.4 cm; Wt 89.8 kg
[2022-03-03 13:04] VITALS: BP 109/62
[2022-03-03] MEDS ORDERED: CEPH500T PO (13:27)
--- NOTE | 2022-03-03 13:27 | ED Integumentary General ---
General Chief Complaint: Skin/Wound Problems Stated Complaint: SORES ON R BREAST Nursing Triage Note: PT AMBULATORY TO ROOM. PT STATES SHE HAS TWO SORES TO RIGHT BREAST, THE FIRST ONE CAME UP APPROX ONE MONTH AGO, THE SECOND WAS ABOUT TWO WEEKS AGO. 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 PT STATES SHE HAS TRIED POPPING THEM HERSELF LIKE A PIMPLE AND GOT SOME PUS OUT. PT STATES THEY HAVE NOT GOTTEN BETTER AND ARE PAINFUL. Source: patient Exam Limitations: no limitations History of Present Illness Date Seen by Provider: Mar 03, 2022 Time Seen by Provider: 13:25 Initial Comments Patient is a 26-year-old female who presents to ED with 2 lesions to her right breast. She states she noted a area that look like a pimple 2 weeks ago. She states that she had some redness and swelling to this area that is localized. Started having increased pain over the past few days ruptured this morning with purulent drainage. Noted a second area a few days ago. She states she works at [employer] and has been sweating which she thought was secondary to heat rash. She denies any fever, chills, nausea, vomiting, diarrhea. Denies of any nipple drainage. Allergies and Home Medications Allergies Coded Allergies: Penicillins (Unverified Allergy, Mild, 12/19/17) Patient Home Medication List Home Medication List Reviewed: Yes Cephalexin (Keflex) 500 Mg Capsule, 500 MG PO TID Prescribed by: LORE GARCIA on 03/27/18 1634 Cephalexin (Cephalexin) 500 Mg Tablet, 500 MG PO QID Prescribed by: MAGALY LEACH on 03/03/22 1327 Hydrocodone/Acetaminophen (Hydrocodone/Acetaminophen 5 MG/325 MG TAB) 1 Each Tablet, 1 EACH PO Q6H PRN for PAIN-MODERATE Prescribed by: LORE GARCIA on 08/14/18 1905 Hydrocodone/Acetaminophen (Hydrocodone-Acetamin 5-325 mg) 1 Each Tablet, 1 TAB PO Q4H PRN for PAIN-MODERATE (5-7) Prescribed by: LORE GARCIA on 06/28/21 1456 Sulfamethoxazole/Trimethoprim (Bactrim Ds Tablet) 1 Each Tablet, 1 EACH PO BID Prescribed by: IVONE FALK on 08/13/18 1648 Review of Systems Review of Systems Constitutional: No chills, No diaphoresis, No malaise, No weakness EENTM: No blurred vision, No double vision Respiratory: No cough, No short of breath Cardiovascular: No chest pain Gastrointestinal: No abdominal pain, No diarrhea, No nausea, No vomiting Genitourinary: No decreased output, No discharge Musculoskeletal: No back pain, No joint pain Skin: change in color, lumps All Other Systems Reviewed Negative Unless Noted: Yes Past Xqklzqj-Rsviwk-Dfdkei Hx Immunizations Up To Date Tetanus Booster (TDap): Less than 5yrs PED Vaccines UTD: Yes Seasonal Allergies Seasonal Allergies: Yes Past Medical History Surgeries: Yes (BMT'S INFANT) Ear Surgery Respiratory: Yes Asthma Cardiac: No Neurological: No Reproductive Disorders: No Female Reproductive Disorders: Denies Sexually Transmitted Disease: No HIV/AIDS: No Genitourinary: No Gastrointestinal: Yes Colitis Musculoskeletal: No Endocrine: No 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 Physical Exam Vital Signs Vital Signs - First Documented 03/03/22 13:04 Temp 36.3 Pulse 82 Resp 16 B/P (MAP) 109/62 (78) Pulse Ox 98 Capillary Refill : General Appearance: WD/WN, no apparent distress HEENT: PERRL/EOMI, normal ENT inspection, TMs normal Neck: non-tender, full range of motion, supple, normal inspection Cardiovascular: regular rate, rhythm, no edema, no gallop Respiratory: chest non-tender, lungs clear, normal breath sounds, no respiratory distress, no accessory muscle use Gastrointestinal: normal bowel sounds, non tender, soft, no organomegaly Back: normal inspection, no CVA tenderness Extremities: normal range of motion, non-tender, normal inspection, no pedal edema Skin: other (Less than 1 cm erythematous lesions to the right lateral breast. Small cyst noted to the right lateral lesion. Mild tenderness. No active purulent drainage.) Procedures/Interventions Suture Size: 4-0 Progress/Results/Core Measures Results/Orders Vital Signs/I&O 03/03/22 13:04 Temp 36.3 Pulse 82 Resp 16 B/P (MAP) 109/62 (78) Pulse Ox 98 Blood Pressure Mean: 78 Departure Communication (PCP) Discussed with patient these may be for skin furuncles versus sebaceous cyst that got it infected. She states she did rupture one of the lesions today with purulent drainage. Do not feel like incision and drainage is needed at this time. I do believe these will likely heal with antibiotics. If they do get worse may need incision and drainage. No severe tenderness on palpation. No nipple discharge. This appears to be superficial. If increased size recommend returning back to ED. Will discharge with Keflex. Patient does not appear toxic or septic. If any worsening symptoms return back to ED. May need further general surgery follow-up for removal Impression Primary Impression: Skin lesion of breast Disposition: HOME, SELF-CARE Condition: Stable Departure-Patient Inst. Decision time for Depature: 13:27 Referrals: [facility] [place] Primary Care Physician CHAIM PLUNKETT DO Patient Instructions: Skin Abscess Add. Discharge Instructions: Return back to ED if symptoms worsen. Recommend warm compresses to help drainage All discharge instructions reviewed with patient and/or family. Voiced understanding. Scripts Cephalexin (Cephalexin) 500 Mg Tablet 500 MG PO QID for 7 Days, #28 TAB Prov: SKIP AWAN 03/03/22 SKIP AWAN Mar 03, 2022 13:27
== END 2022-03-03 13:50 | disposition home or self-care (01) ==
LOC: EDUNIT# 12:55 → ER 12:57
DX: N64.9 Disorder of breast, unspecified (principal); Z28.310 Unvaccinated for COVID-19
CPT/HCPCS: 99282

== ENCOUNTER 2022-03-09 07:41 | Emergency (ER) | payer MEDICAID ==
[~2022-03-09] VITALS: Ht 157 cm; Wt 89.8 kg
[~2022-03-09 07:41] MED LIST changes: +CEPH500T PO
--- NOTE | 2022-03-09 07:55 | ED Upper Extremity ---
General Chief Complaint: Upper Extremity Stated Complaint: L HAND NUMBNESS Source: patient Exam Limitations: no limitations History of Present Illness Date Seen by Provider: Mar 09, 2022 Time Seen by Provider: 07:42 Initial Comments 26-year-old female with no pertinent past medical history coming in due to left hand numbness most notably over her left thumb and pointer finger. She has been noticing it mostly in the mornings, worse this morning. Gets better throughout the day. Has not seen anyone for it in the past. 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 Does have some pain in the mornings associated with it which is more of a throbbing pain, moderate, better with time. Has not taken any medicines for it. Is otherwise denying any other acute complaints including any headache, vision changes, numbness anywhere else, weakness anywhere else, chest pain, shortness of breath, abdominal pain, nausea, vomiting, diarrhea, fever, chills, or any other concerns. Allergies and Home Medications Allergies Coded Allergies: Penicillins (Unverified Allergy, Mild, 12/19/17) Patient Home Medication List Home Medication List Reviewed: Yes Cephalexin (Keflex) 500 Mg Capsule, 500 MG PO TID Prescribed by: LORE GARCIA on 03/27/18 1634 Cephalexin (Cephalexin) 500 Mg Tablet, 500 MG PO QID Prescribed by: MAGALY LEACH on 03/03/22 1327 Hydrocodone/Acetaminophen (Hydrocodone/Acetaminophen 5 MG/325 MG TAB) 1 Each Tablet, 1 EACH PO Q6H PRN for PAIN-MODERATE Prescribed by: LORE GARCIA on 08/14/18 1905 Hydrocodone/Acetaminophen (Hydrocodone-Acetamin 5-325 mg) 1 Each Tablet, 1 TAB PO Q4H PRN for PAIN-MODERATE (5-7) Prescribed by: LORE GARCIA on 06/28/21 1456 Sulfamethoxazole/Trimethoprim (Bactrim Ds Tablet) 1 Each Tablet, 1 EACH PO BID Prescribed by: IVONE FALK on 08/13/18 1648 Review of Systems Constitutional: No fever EENTM: No blurred vision Respiratory: No cough Cardiovascular: No chest pain Gastrointestinal: no symptoms reported Genitourinary: no symptoms reported Musculoskeletal: see HPI Skin: no symptoms reported Psychiatric/Neurological: See HPI All Other Systems Reviewed Negative Unless Noted: Yes Past Asylxxf-Ltbsvm-Plyxrs Hx Patient Social History Substance use?: No Immunizations Up To Date Tetanus Booster (TDap): Less than 5yrs PED Vaccines UTD: Yes Seasonal Allergies Seasonal Allergies: Yes Past Medical History Surgeries: Yes (BMT'S INFANT) Ear Surgery Respiratory: Yes Asthma Cardiac: No Neurological: No Reproductive Disorders: No Female Reproductive Disorders: Denies Sexually Transmitted Disease: No HIV/AIDS: No Genitourinary: No Gastrointestinal: Yes Colitis Musculoskeletal: No Endocrine: No HEENT: Yes (BMT'S ) Chronic Ear Infection Cancer: No Psychosocial: No Integumentary: No Blood Disorders: No Adverse Reaction/Blood Tranf: No Family Medical History Patient reports no known family medical history. Physical Exam Vital Signs Capillary Refill : Height, Weight, BMI Height: 5'3.00" Weight: 160lbs. 0.0oz. 72.227800oh; 36.00 BMI Method:Stated General Appearance: WD/WN, no apparent distress HEENT: PERRL/EOMI, normal ENT inspection, pharynx normal Neck: non-tender, full range of motion, supple, normal inspection Cardiovascular: regular rate, rhythm, no edema, no murmur Respiratory: chest non-tender, lungs clear, normal breath sounds, no respiratory distress, no accessory muscle use Gastrointestinal: normal bowel sounds, non tender, soft; No distended, No guarding Back: normal inspection Wrist: Yes normal inspection, Yes no evidence of injury, Yes normal ROM Hand: normal inspection, non-tender, no evidence of injury, normal ROM, Left (Positive Tinel And Phalen flap on the left, change in sensation to the left thumb through middle finger compared to the right upper extremity, no muscular wasting as of yet) Neurologic/Tendon: normal motor functions, normal tendon functions Neurologic/Psychiatric: no motor/sensory deficits, alert, normal mood/affect Skin: normal color, warm/dry Lymphatic: no adenopathy Procedures/Interventions Suture Size: 4-0 Progress/Results/Core Measures Progress Progress Note : Progress Note 26-year-old female with above history coming in due to numbness and tingling with some pain to the left thumb through middle finger worse in the mornings. ABCs were intact and vitals were stable on presentation. Physical exam with the above-mentioned findings. This is consistent with a peripheral neuropathy from the median nerve and is consistent with carpal tunnel syndrome. Discussed patient getting wrist splints for nighttime wear, and she will follow-up with a hand surgeon if not improving. I believe she stable for discharge with outpatient follow-up. She was sent home with strict return precautions Departure Impression Primary Impression: Carpal tunnel syndrome of left wrist Disposition: 01 HOME, SELF-CARE Condition: Stable Departure-Patient Inst. Decision time for Depature: 07:54 Ref[facility]: [facility] [place] Primary Care Physician Patient Instructions: Carpal Tunnel Syndrome (DC) Add. Discharge Instructions: You have carpal tunnel syndrome in your left wrist, and very likely will develop it in your right if you have not already. I would buy bilateral splints that you can find on [employer] or any store such as [employer] or [employer]. Any wrist splint will do that will prevent you from bending your wrist down. Wear them diligently at night and give this at least 6 weeks. If things are not improving then follow-up with a hand surgeon to discuss your options. If your symptoms start progressing rapidly even with the splints, then follow-up with a hand surgeon sooner. Take ibuprofen or Tylenol as needed for pain. Work/School Note: Work Release Form Date Seen in the Emergency Department: Mar 09, 2022 Return to Work: Mar 10, 2022 Restrictions: No Restrictions SKIP BROWN MD Mar 09, 2022 07:55
[2022-03-09 07:58] VITALS: BP 108/45
== END 2022-03-09 07:58 | disposition home or self-care (01) ==
LOC: EDUNIT# 07:41 → ER 07:42
DX: G56.02 Carpal tunnel syndrome, left upper limb (principal); Z28.310 Unvaccinated for COVID-19
CPT/HCPCS: 99281

== ENCOUNTER 2022-07-22 13:43 | Emergency (ER) | payer MEDICAID ==
[~2022-07-22] VITALS: Ht 154 cm; Wt 88.0 kg
[2022-07-22 13:55] VITALS: BP 116/51
[2022-07-22] MEDS ORDERED: CEFD300C3 PO (15:44)
--- NOTE | 2022-07-22 15:44 | ED Cough/URI ---
General Chief Complaint: Cough/Cold/Flu Symptoms Stated Complaint: COUGH | HEAD CONGESTION | CHEST CONGESTION Nursing Triage Note: ARRIVED VIA AMB TO TRIAGE WITH COMPLAINTS OF SINUS CONGESTION AND DIARRHEA X1 WEEK. Source: patient Exam Limitations: no limitations Allergies and Home Medications Allergies Coded Allergies: Penicillins (Unverified Allergy, Mild, 12/19/17) Patient Home Medication List Discontinued Medications Cephalexin (Keflex) 500 Mg Capsule, 500 MG PO TID Discontinued Reason: No Longer Taking Prescribed by: LORE GARCIA on 03/27/18 1634 Last Action: Discontinued Cephalexin (Cephalexin) 500 Mg Tablet, 500 MG PO QID Discontinued Reason: No Longer Taking Prescribed by: MAGALY LEACH on 03/03/22 1327 Last Action: Discontinued Hydrocodone/Acetaminophen (Hydrocodone/Acetaminophen 5 MG/325 MG TAB) 1 Each Tablet, 1 EACH PO Q6H PRN for PAIN-MODERATE Discontinued Reason: No Longer Taking Prescribed by: LORE GARCIA on 08/14/18 1905 Last Action: Discontinued Hydrocodone/Acetaminophen (Hydrocodone-Acetamin 5-325 mg) 1 Each Tablet, 1 TAB PO Q4H PRN for PAIN-MODERATE (5-7) Discontinued Reason: No Longer Taking Prescribed by: LORE GARCIA on 06/28/21 1456 Last Action: Discontinued Sulfamethoxazole/Trimethoprim (Bactrim Ds Tablet) 1 Each Tablet, 1 EACH PO BID Discontinued Reason: No Longer Taking Prescribed by: IVNOE FALK on 08/13/18 1648 Last Action: Discontinued Past Sqcczod-Uwmdnq-Tdtdsp Hx Patient Social History Tobacco Use?: Yes Substance use?: No Alcohol Use?: No Immunizations Up To Date Tetanus Booster (TDap): Less than 5yrs PED Vaccines UTD: Yes Seasonal Allergies Seasonal Allergies: Yes Past Medical History Surgeries: Yes (BMT'S ) Ear Surgery Respiratory: Yes Asthma Cardiac: No Neurological: No Reproductive Disorders: No Female Reproductive Disorders: Denies Sexually Transmitted Disease: No HIV/AIDS: No Genitourinary: No Gastrointestinal: Yes Colitis Musculoskeletal: No Endocrine: No HEENT: Yes (BMT'S ) Chronic Ear Infection Cancer: No Psychosocial: No Integumentary: No Blood Disorders: No Adverse Reaction/Blood Tranf: No Family Medical History Patient reports no known family medical history. Physical Exam Vital Signs - First Documented 07/22/22 13:55 Temp 37.1 Pulse 100 Resp 16 B/P (MAP) 116/51 (72) Pulse Ox 100 O2 Delivery Room Air Capillary Refill : Less Than 3 Seconds Height: 5'3.00" Weight: 160lbs. 0.0oz. 72.369761sw; 37.00 BMI Method:Stated Procedures/Interventions Suture Size: 4-0 Progress/Results/Core Measures Suspected Sepsis SIRS Temperature: Pulse: 100 Respiratory Rate: 16 Blood Pressure 116 /51 Mean: 72 Results/Orders Lab Results Laboratory Tests Test 07/22/22 14:10 Range/Units Influenza Type A (RT-PCR) Not Detected Not Detecte Influenza Type B (RT-PCR) Not Detected Not Detecte SARS-CoV-2 RNA (RT-PCR) Not Detected Not Detecte My Orders Orders - GERMAIN DUNN [employer] Covid 19 Inhouse Test (07/22/22 14:07) Influenza A And B By Pcr (07/22/22 14:07) Isolation Central Supply Req (07/22/22 14:07) Vital Signs/I&O 07/22/22 13:55 Temp 37.1 Pulse 100 Resp 16 B/P (MAP) 116/51 (72) Pulse Ox 100 O2 Delivery Room Air Capillary Refill : Less Than 3 Seconds 2 Blood Pressure Mean: 72 Departure Impression Primary Impression: Sinusitis Disposition: 01 HOME, SELF-CARE Condition: Improved Departure-Patient Inst. Decision time for Depature: 15:43 Referrals: [facility] (PCP/Family) Primary Care Physician Patient Instructions: Sinusitis, Adult ED Add. Discharge Instructions: Plan: 1. May use warm compresses to the right side of your face for comfort. 2. You can take Tylenol and ibuprofen as needed for pain per package. 3. Take antibiotics twice a day as directed and complete full course even if you begin to feel better. 4. Return to the ER for any new, concerning, worsening symptoms. All discharge instructions reviewed with patient and/or family. Voiced understanding. Scripts Cefdinir (Cefdinir) 300 Mg Capsule 300 MG PO BID for 7 Days, #14 CAP 0 Refills Prov: GERMAIN DUNN [employer] 07/22/22 GERMAIN DUNN [employer] Jul 22, 2022 15:44
== END 2022-07-22 15:55 | disposition home or self-care (01) ==
LOC: EDUNIT# 13:43 → ER 13:45
DX: J32.9 Chronic sinusitis, unspecified (principal); Z88.0 Allergy status to penicillin; Z20.822 Contact with and (suspected) exposure to COVID-19; Z28.310 Unvaccinated for COVID-19
CPT/HCPCS: 87636; 99283

== ENCOUNTER 2023-01-25 15:34 | Emergency (ER) | payer MEDICAID ==
[~2023-01-25] VITALS: Ht 157 cm; Wt 86.0 kg
[~2023-01-25 15:34] MED LIST changes: +CEFD300C3 PO
[2023-01-25] MEDS ORDERED: ACHD5005 PO (16:16)
[2023-01-25] MEDS ORDERED: CLIN-144 PO (16:16)
--- NOTE | 2023-01-25 16:17 | ED EENT ---
History of Present Illness General Chief Complaint: Dental Problems/Pain Stated Complaint: DENTAL PAIN Nursing Triage Note: PT AMB TO FT1 PT CO OF DENTAL PAIN, STATES HAD GOTTEN CHIP STUCK BEHIND FRONT TEETH AND HAS PAIN POSS DENTAL CARIES. PT ALSO CO OF DENTAL PAIN IN LOWER R JAW ALSO DENTAL CARIES W BOTH AREAS HAVING PAIN /10. PT STATES HAS NOT TAKEN ANYTHING FOR PAIN. Source: patient Exam Limitations: no limitations (SKIP AWAN) History of Present Illness Date Seen by Provider: Jan 25, 2023 Time Seen by Provider: 16:12 Initial Comments Patient Is a 27-year-old female who presents the ED with right lower dental pain. No pain over the past 2 days. She states she has had a history of infected tooth on the right side. Patient noted some swelling and redness. Denies any facial swelling or erythema. Pain with eating. History of previous dental infection. She states she is scheduled follow-up with a dentist this upcoming April. Has been taking anti-inflammatories without much improvement. (SKIP AWAN) Allergies and Home Medications Allergies Coded Allergies: Penicillins (Unverified Allergy, Mild, 12/19/17) Patient Home Medication List Home Medication List Reviewed: Yes (SKIP AWAN) Cefdinir (Cefdinir) 300 Mg Capsule, 300 MG PO BID Prescribed by: GERMAIN DUNN on 07/22/22 1544 Clindamycin HCl (Clindamycin HCl) 300 Mg Capsule, 300 MG PO QID Prescribed by: MAGALY LEACH on 01/25/23 1616 Hydrocodone/Acetaminophen (Hydrocodone-Acetamin 5-325 mg) 5 Mg-325 Mg Tablet, 1 TAB PO Q4H PRN for PAIN-MODERATE (5-7) Prescribed by: MAGALY LEACH on 01/25/23 1617 Review of Systems Review of Systems Constitutional: No chills, No diaphoresis, No malaise, No weakness Eyes: Denies Blurred Vision, Denies Decreased Acuity Ears: Denies Dizziness, Denies Pain Nose: denies clots, denies congestion Mouth: denies loose teeth; pain, swelling, other (Dental pain) Throat: denies swelling, denies discharge Respiratory: No cough, No dyspnea on exertion Cardiovascular: No chest pain Musculoskeletal: No back pain, No joint pain Skin: No change in color, No change in hair/nails (SKIP AWAN) All Other Systems Reviewed Negative Unless Noted: Yes (SKIP AWAN) Past Lsrlsjk-Wcccjv-Pbwgub Hx Patient Social History Tobacco Use?: Yes Tobacco type used: Cigarettes Smokeless Tobacco Frequency: Current Everyday User Substance use?: No Alcohol Use?: No Pt feels they are or have been: No (SKIP AWAN) Immunizations Up To Date Tetanus Booster (TDap): Less than 5yrs PED Vaccines UTD: Yes (SKIP AWAN) Seasonal Allergies Seasonal Allergies: Yes (SKIP AWAN) Past Medical History Surgeries: Yes (BMT'S INFANT) Ear Surgery Respiratory: Yes Asthma Cardiac: No Neurological: No Reproductive Disorders: No Female Reproductive Disorders: Denies Sexually Transmitted Disease: No HIV/AIDS: No Genitourinary: No Gastrointestinal: Yes Colitis Musculoskeletal: No Endocrine: No 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 Physical Exam Vital Signs Vital Signs - First Documented 01/25/23 15:55 Temp 36.6 Pulse 100 Resp 16 B/P (MAP) 126/61 (82) Pulse Ox 99 (PEDRO YEH MD) Height, Weight, BMI Height: 5'3.00" Weight: 160lbs. 0.0oz. 72.387442xc; 34.00 BMI Method:Stated General Appearance: WD/WN, no apparent distress Eyes: bilateral eye normal inspection, bilateral eye PERRL, bilateral eye EOMI Ears: bilateral ear auricle normal, bilateral ear canal normal, bilateral ear TM normal Nose: normal inspection Mouth/Throat: other (Lower molar tenderness. Gum swelling erythema. Decay noted. Cavities noted previous) Neck: non-tender (Lower molar tenderness. Gum swelling erythema. Decay noted. Cavities noted previous Fluctuant mass.), full range of motion Cardiovascular: regular rate, rhythm, no edema, no gallop, no JVD Respiratory: chest non-tender, lungs clear, normal breath sounds, no respiratory distress, no accessory muscle use Gastrointestinal: normal bowel sounds, non tender, soft, no organomegaly Neurologic/Psychiatric: event set up specialist II-XII nml as tested, no motor/sensory deficits, alert, oriented x 3 Skin: normal color, warm/dry (SKIP AWAN) Procedures/Interventions Suture Size: 4-0 (SKIP AWAN) Progress/Results/Core Measures Results/Orders Vital Signs/I&O 01/25/23 01/25/23 15:55 16:22 Temp 36.6 36.6 Pulse 100 100 Resp 16 16 B/P (MAP) 126/61 (82) 126/61 Pulse Ox 99 99 (PEDRO YEH MD) Blood Pressure Mean: 82 Departure Communication (PCP) Patient with poor dentetion Right lower molar with decay. Concern for apical abscess. Patient will be discharged to [facility]. A few days worth of pain medication. Dental outpatient follow-up. No facial swelling erythema. Refused dental block. If increased pain, swelling or erythema of the face to return back to ED. Anti-inflammatories for pain (SKIP AWAN) Impression Primary Impression: Pain, dental Disposition: 01 HOME, SELF-CARE Condition: Stable Departure-Patient Inst. Decision time for Depature: 16:15 (SKIP AWAN) Referrals: [facility] [place] Primary Care Physician Patient Instructions: Dental Pain Scripts Hydrocodone/Acetaminophen (Hydrocodone-Acetamin 5-325 mg) 5 Mg-325 Mg Tablet 1 TAB PO Q4H PRN for PAIN-MODERATE (5-7), #8 TAB Prov: SKIP AWAN 01/25/23 Clindamycin HCl (Clindamycin HCl) 300 Mg Capsule 300 MG PO QID for 7 Days, #28 CAP Prov: SKIP AWAN 01/25/23 ATTENDING PHYSICIAN NOTE: I was physically present as attending physician in the emergency department during the care of this patient, but I was not directly involved in the decision making or delivery of care for this patient. (PEDRO YEH MD) SKIP AWAN Jan 25, 2023 16:17 PEDRO YEH MD Jan 25, 2023 19:10
[2023-01-25 16:22] VITALS: BP 126/61
== END 2023-01-25 16:22 | disposition home or self-care (01) ==
LOC: EDUNIT# 15:34 → ER 15:36
DX: K02.9 Dental caries, unspecified (principal); F17.210 Nicotine dependence, cigarettes, uncomplicated; Z88.0 Allergy status to penicillin
CPT/HCPCS: 99282